=== PATIENT | female | born 1950 | race Hispanic/Latino ===

== ENCOUNTER 2018-08-24 17:56 | Inpatient (IN) | payer MEDICARE ==
--- NOTE | 2018-08-24 18:49 | Emergency Department Report ---
HPI - General Chief Complaint: Dyspnea/Respdistress Time Seen by Provider: 08/24/18 18:18 - HPI HPI: 68-year-old female presents to the emergency department via EMS with complaint of shortness of breath and generally feeling ill. Patient appears sleepy but is arousable but is currently a poor historian. She has a past history of COPD for which she is home oxygen dependent at 3 L via nasal cannula. She has a history of hypertension, CHF, paroxysmal A. fib and T-cell carcinoma that is in remission. The patient went to the painter and decorator apprentice today where she had a normal checkup. She was brought to her daughters so that they could drive back together to [place] but the patient was slumped to the side and complained of shortness of breath, feeling ill, and said that she needed to go to the emergency department. The patient's daughter called EMS. An EKG was done in route and EMS had some concern for ischemic changes so the patient was given a nitroglycerin. Patient's applications engineer is Dr. Castañeda and senior java engineer is a Dr. Clemente here in [place]. ED Past Medical Hx - Past Medical History Hx Hypertension: Yes Hx Congestive Heart Failure: Yes Hx COPD: Yes (c-pap and home O2 3L) Additional medical history: AFIB, T-CELL Carcinoma, port left chest - Surgical History Hx Cholecystectomy: Yes Hx Appendectomy: Yes Additional Surgical History: hysterectomy,right knee - Social History Smoking Status: Unknown if ever smoked Substance Use Type: None - Medications Home Medications: Home Medications Medication Instructions Recorded Confirmed Last Taken Type ALBUTEROL Inhaler (OR & NICU) 3 puff IH QID PRN 08/24/18 08/24/18 Unknown History [Proair] ALPRAZolam [Xanax TAB] 0.5 mg PO BID 08/24/18 08/24/18 Unknown History Allopurinol [Zyloprim] 300 mg PO QDAY 08/24/18 08/24/18 Unknown History Budesonide/Formoterol Fumarate 10.2 gm IH BID 08/24/18 08/24/18 Unknown History [Symbicort 160-4.5 Mcg Inhaler] Cholecalciferol Vit D3 [Vitamin D3 1,000 unit PO QDAY 08/24/18 08/24/18 Unknown History 1,000 UNIT TAB] Colchicine [Mitigare] 0.6 mg PO DAILY 08/24/18 08/24/18 Unknown History Furosemide [Lasix TAB] 40 mg PO QDAY 08/24/18 08/24/18 Unknown History Gabapentin [Neurontin] 300 mg PO BID 08/24/18 08/24/18 Unknown History Magnesium 500 mg PO DAILY 08/24/18 08/24/18 Unknown History Potassium 20 meq PO BID 08/24/18 08/24/18 Unknown History Pravastatin [Pravachol] 20 mg PO QHS 08/24/18 08/24/18 Unknown History Sertraline [Zoloft] 50 mg PO QDAY 08/24/18 08/24/18 Unknown History Tiotropium [Spiriva] 18 mcg IH QDAY 08/24/18 08/24/18 Unknown History Verapamil [Calan] 120 mg PO TID 08/24/18 08/24/18 Unknown History Warfarin [Coumadin] 5 mg PO QDAY 08/24/18 08/24/18 Unknown History buPROPion SR [Wellbutrin Sr] 150 mg PO BID 08/24/18 08/24/18 Unknown History glipiZIDE [Glipizide] 10 mg PO BID 08/24/18 08/24/18 Unknown History rOPINIRole [Requip] 1 mg PO QHS 08/24/18 08/24/18 Unknown History traZODone [Desyrel] 150 mg PO QHS 08/24/18 08/24/18 Unknown History ED Review of Systems ROS: Stated complaint: YUMIKO Other details as noted in HPI Comment: All other systems reviewed and negative Constitutional: weakness. denies: chills, fever Eyes: denies: eye pain, vision change ENT: denies: ear pain, throat pain Respiratory: shortness of breath. denies: wheezing Cardiovascular: denies: chest pain, edema Gastrointestinal: denies: abdominal pain, vomiting Genitourinary: denies: dysuria, frequency Musculoskeletal: denies: back pain, arthralgia Skin: denies: rash, lesions Neurological: denies: headache, numbness Physical Exam - Physical Exam Vital Signs: Vital Signs 08/24/18 18:10 Temperature 98.4 F Pulse Rate 80 Respiratory 20 Rate Blood Pressure 125/65 O2 Sat by Pulse 97 Oximetry Physical Exam: GENERAL: The patient is well-developed well-nourished. HEENT: Normocephalic. Atraumatic. Patient has moist mucous membranes. EYES: Extraocular motions are intact. Pupils are equal and reactive to light bilaterally. NECK: Supple. Trachea is midline. CHEST/LUNGS: Slightly coarse breath sounds. Tachypnea but no accessory muscle use. There is no respiratory distress noted. HEART/CARDIOVASCULAR: Regular. There is no tachycardia. There is no obvious murmur. ABDOMEN: Abdomen is soft, nontender. Patient has normal bowel sounds. There is no abdominal distention. SKIN: Skin is warm and dry. NEURO: The patient is very sleepy but is arousable. Once awake, she is oriented but may fall back asleep if not stimulated. Follows commands. MUSCULOSKELETAL: There is no tenderness or deformity. There is no evidence of acute injury. ED Course Vital Signs 08/24/18 18:10 Temperature 98.4 F Pulse Rate 80 Respiratory 20 Rate Blood Pressure 125/65 O2 Sat by Pulse 97 Oximetry - Reevaluation(s) Reevaluation #1: 08/24/18 21:36 The patient's daughter made a request for a lateral transfer to [facility] for continuity of care. The patient's senior java engineer, Dr. Pineda, is a [place] senior java engineer and does not come to our hospital. The applications engineer does come to this hospital. The PCP, Dr Delta Perrin, is located in [place] but apparently does not take his own admissions. I attempted to contact the primary care physician and was able to speak with one of his partners, Dr. Hinds. Dr. Hinds agrees that it is difficult to facilitate this type of lateral transfer at night and that the patient should be admitted to our facility. He suggests that if the patient or patient's family still wants a transfer done tomorrow during normal business hours, then Dr. Perrin should be contacted directly and the discussion can be had regarding a possible transfer, if still warranted. - ABG Interpretation Ph: [phone] PCO2: 51 PO2: 68 Bicarbonate: 31 Interpretation: respiratory acidosis, metabolic alkalosis ED Medical Decision Making - Lab Data Result diagrams: 08/24/18 18:43 08/24/18 18:43 - EKG Data -: EKG Interpreted by Me EKG shows normal: sinus rhythm, axis, intervals (prolonged QTc), QRS complexes (RBBB), ST-T waves Rate: normal - EKG Data When compared to previous EKG there are: previous EKG unavailable Interpretation: other (RBBB) - Radiology Data Radiology results: report reviewed, image reviewed interpreted by me: Chest x-ray shows cardiomegaly with pulmonary vascular congestion. No pneumonia or obvious layering pleural effusions. PROCEDURE: CT HEAD/BRAIN WO CON TECHNIQUE: Computerized tomography of the head was performed without contrast material. CT DOSE LENGTH PRODUCT: 1048.3 mGycm HISTORY: AMS COMPARISONS: None . FINDINGS: Skull and scalp: Normal . Paranasal sinuses: Sinuses are clear. There is partial opacification of bilateral mastoid air cells. . Ventricles and subarachnoid spaces: Normal . Cerebrum: There is mild degree of bilateral periventricular nonspecific white m atter hypodensity most likely representing chronic microangiopathy. An acute intra-axial or extra-axial hemorrhage or mass effect is not identified.. Cerebellum and brainstem: No evidence of hemorrhage, acute infarction or mass . Vasculature: Atherosclerotic calcification is noted involving internal carotid and vertebral arteries. . Other: None . ASPECTS: 10 IMPRESSION: No acute intracranial abnormality. Bilateral mastoiditis is suspected.. This document is electronically signed by Mellisa Aly MD., August 24 2018 09:59:47 PM ET Transcribed By: [facility] [place] Dictated By: MELLISA ALY Electronically Authenticated By: MELLISA ALY Signed Date/Time: 08/24/182200 - Medical Decision Making This patient presents to the emergency department with acute shortness of breath and general illness. She is very sleepy, almost lethargic, but is arousable and once awake she is oriented to person, place and time. A CT scan of the head was done that does not show any bleed, shift, mass, ischemia, or any other acute process. ABG shows some hypercapnia and hypoxemia. Patient has maintained her oxygen saturation with supplemental oxygen via nasal cannula. There is some tachypnea but no accessory muscle use or signs of respiratory distress. Chest x-ray does not show any obvious pneumonia but there is some cardiomegaly and pulmonary vascular congestion. She has a BNP of almost 4000. Patient was given breathing treatments, Lasix for diuresis. EKG shows a right bundle branch block but no ST elevation WA or dysrhythmia. The patient will be admitted to hospital for further evaluation and treatment was accepted for admission by the hospitalist, Dr. Coronel. - Differential Diagnosis COPD, CHF, pneumonia, WA, PE Critical Care Time: No Critical care attestation.: If time is entered above; I have spent that time in minutes in the direct care of this critically ill patient, excluding procedure time. ED Disposition Clinical Impression: COPD with acute exacerbation, Hypercapnia Hypertension Qualifiers: Hypertension type: essential hypertension Qualified Code(s): I10 - Essential (primary) hypertension Acute exacerbation of CHF (congestive heart failure) Qualifiers: Heart failure type: unspecified Qualified Code(s): I50.9 - Heart failure, unspecified Disposition: OP ADMIT IP TO THIS HOSP Is pt being admited?: Yes Condition: Serious Time of Disposition: 01:10
[2018-08-24 19:03] LABS: Basophils # (Auto) 0.1 K/mm3 (0.0-0.1); Basophils % (Auto) 1.2 % (0.0-1.8); Eosinophils # (Auto) 0.1 K/mm3 (0.0-0.4); Eosinophils % (Auto) 0.8 % (0.0-4.3); Hematocrit 43.4 % (30.3-42.9); Hemoglobin 14.4 gm/dl (10.1-14.3); Lymphocytes # (Auto) 2.5 K/mm3 (1.2-5.4); Mean Corpuscular HGB Conc 33 % (30-34); Mean Corpuscular Volume 96 fl (79-97); Monocytes # (Auto) 0.5 K/mm3 (0.0-0.8); Monocytes % (Auto) 4.2 % (0.0-7.3); Platelet Count 257 K/mm3 (140-440); Red Blood Count 4.52 M/mm3 (3.65-5.03); Red Cell Distribution Width 13.5 % (13.2-15.2)
[2018-08-24 19:13] LABS: INR 2.64 (0.87-1.13)
[2018-08-24 19:33] LABS: Alanine Aminotransferase 6 units/L (7-56); Albumin 3.6 g/dL (3.9-5); BUN/Creatinine Ratio 12; Blood Urea Nitrogen 7 mg/dL (7-17); Hemolysis Index 21
--- NOTE | 2018-08-24 19:34 | XRay Report ---
PROCEDURE: XR CHEST 1V AP TECHNIQUE: Chest radiograph , single frontal view. HISTORY: Dyspnea COMPARISONS: None . FINDINGS: Heart: Enlarged. Mediastinum/Vessels: Prominent bilateral pulmonary arteries are seen in each hilum. Lungs/Pleural space: Normal. Bony thorax: No acute osseous abnormality. Surgical clips in the left axilla noted. Life support devices: A small battery compartment overlying the heart is noted.. IMPRESSION: No acute cardiopulmonary abnormality. Mild cardiomegaly and prominent pulmonary arteries in each hilum This document is electronically signed by Mojgan Tena MD., August 24 2018 07:32:43 PM ET
[2018-08-24] MEDS ORDERED: LASIX IV ONE (19:35)
[2018-08-24] MEDS ORDERED: DUONEB *Not for PRN Use IH ONE (19:35)
--- NOTE | 2018-08-24 22:01 | Cat Scan Report ---
PROCEDURE: CT HEAD/BRAIN WO CON TECHNIQUE: Computerized tomography of the head was performed without contrast material. CT DOSE LENGTH PRODUCT: 1048.3 mGycm HISTORY: AMS COMPARISONS: None . FINDINGS: Skull and scalp: Normal . Paranasal sinuses: Sinuses are clear. There is partial opacification of bilateral mastoid air cells. . Ventricles and subarachnoid spaces: Normal . Cerebrum: There is mild degree of bilateral periventricular nonspecific white matter hypodensity most likely representing chronic microangiopathy. An acute intra-axial or extra-axial hemorrhage or mass effect is not identified.. Cerebellum and brainstem: No evidence of hemorrhage, acute infarction or mass . Vasculature: Atherosclerotic calcification is noted involving internal carotid and vertebral arterie s. . Other: None . ASPECTS: 10 IMPRESSION: No acute intracranial abnormality. Bilateral mastoiditis is suspected.. This document is electronically signed by Magdi Dodd MD., August 24 2018 09:59:47 PM ET
[2018-08-24] MEDS ORDERED: SODIUM CHLORIDE FLUSH SYRINGE 10 ML IV PRN (23:04)
[2018-08-24] MEDS ORDERED: ZOFRAN IV PRN (23:04)
--- NOTE | 2018-08-24 23:08 | History and Physical Report ---
History of Present Illness Date of examination: 08/24/18 History of present illness: 68-year-old woman with a history of hypertension, CHF, COPD, A. fib, cancer comes emergency room with complaints of shortness of breath, decreased exercise tolerance that started yesterday Review of systems Constitutional: no weight loss, chills, fever Ears, eyes, nose, mouth and throat: no nasal congestion, no nasal discharge, no sinus pressure, no vision change, no red eye. Neck: No neck pain or rigidity. Cardiovascular: no palpitations, chest pain Respiratory: no cough, +shortness of breath Gastrointestinal: no hematochezia, abdominal pain Genitourinary : no frequency , no hematuria Musculoskeletal: no joint swelling or muscle ache Integumentary: no rash, no pruritis Neurological: no parathesias, no focal weakness Endocrine: no cold or heat intolerance, no polyuria or polydipsia Hematologic/Lymphatic: no easy bruising, no easy bleeding, no gland swelling Allergic/Immunologic: no urticaria, no angioedema. PAST MEDICAL HISTORY:hypertension, CHF, COPD, A. fib, cancer PAST SURGICAL HISTORY: Hysterectomy, right knee, appendectomy, gallbladder SOCIAL HISTORY: Denies alcohol, drugs, tobacco FAMILY HISTORY: Hypertension Medications and Allergies Allergies Allergy/AdvReac Type Severity Reaction Status Date / Time No Known Allergies Allergy Verified 08/24/18 21:54 Home Medications Medication Instructions Recorded Confirmed Last Taken Type ALBUTEROL Inhaler (OR & NICU) 3 puff IH QID PRN 08/24/18 08/24/18 Unknown History [Proair] ALPRAZolam [Xanax TAB] 0.5 mg PO BID 08/24/18 08/24/18 Unknown History Allopurinol [Zyloprim] 300 mg PO QDAY 08/24/18 08/24/18 Unknown History Budesonide/Formoterol Fumarate 10.2 gm IH BID 08/24/18 08/24/18 Unknown History [Symbicort 160-4.5 Mcg Inhaler] Cholecalciferol Vit D3 [Vitamin D3 1,000 unit PO QDAY 08/24/18 08/24/18 Unknown History 1,000 UNIT TAB] Colchicine [Mitigare] 0.6 mg PO DAILY 08/24/18 08/24/18 Unknown History Furosemide [Lasix TAB] 40 mg PO QDAY 08/24/18 08/24/18 Unknown History Gabapentin [Neurontin] 300 mg PO BID 08/24/18 08/24/18 Unknown History Magnesium 500 mg PO DAILY 08/24/18 08/24/18 Unknown History Potassium 20 meq PO BID 08/24/18 08/24/18 Unknown History Pravastatin [Pravachol] 20 mg PO QHS 08/24/18 08/24/18 Unknown History Sertraline [Zoloft] 50 mg PO QDAY 08/24/18 08/24/18 Unknown History Tiotropium [Spiriva] 18 mcg IH QDAY 08/24/18 08/24/18 Unknown History Verapamil [Calan] 120 mg PO TID 08/24/18 08/24/18 Unknown History Warfarin [Coumadin] 5 mg PO QDAY 08/24/18 08/24/18 Unknown History buPROPion SR [Wellbutrin Sr] 150 mg PO BID 08/24/18 08/24/18 Unknown History glipiZIDE [Glipizide] 10 mg PO BID 08/24/18 08/24/18 Unknown History rOPINIRole [Requip] 1 mg PO QHS 08/24/18 08/24/18 Unknown History traZODone [Desyrel] 150 mg PO QHS 08/24/18 08/24/18 Unknown History Exam - Physical Exam Narrative exam: General Apperance: The patient lying in bed, breathing comfortable HEENT: Normocephalic, atraumatic. Pupils equally round and reactive to light, EOMI, no sclericterus or JVD or thyromegaly or nodule. , no carotid bruit, mucous membranes moist, no exudate or erythema Heart: S1-S2, regular is rhythm Lungs: Wheezing bilaterally, breathing comfortable Abdomen: Positive bowel sounds, soft, nontender, nondistended, no organomegaly Extremities: No edema cyanosis clubbing Skin: no rash, nodule, warm and dry Neuro: cranial nerves 2-12 intact, speech is fluent, motor/sensory intact - Constitutional Vitals: Temp Pulse Resp BP Pulse Ox 98.4 F 82 16 163/83 98 08/24/18 18:10 08/24/18 20:00 08/24/18 20:00 08/24/18 18:46 08/24/18 18:46 Results - Labs CBC & Chem 7: 08/24/18 18:43 08/24/18 18:43 Labs: Abnormal lab results 08/24/18 08/24/18 08/24/18 Range/Units 18:43 18:43 18:43 WBC 11.2 H (4.5-11.0) K/mm3 Hgb 14.4 H (10.1-14.3) gm/dl Hct 43.4 H (30.3-42.9) % Seg Neutrophils % 71.8 H (40.0-70.0) % Seg Neutrophils # 8.0 H (1.8-7.7) K/mm3 PT 30.0 H (12.2-14.9) Sec. INR 2.64 H (0.87-1.13) POC ABG pCO2 (35-45) POC ABG pO2 (80-105) Sodium 136 L (137-145) mmol/L Chloride 92.7 L (98-107) mmol/L Carbon Dioxide 33 H (22-30) mmol/L Creatinine 0.6 L (0.7-1.2) mg/dL Glucose 235 H (65-100) mg/dL ALT 6 L (7-56) units/L NT-Pro-B Natriuret Pep (0-900) pg/mL Albumin 3.6 L (3.9-5) g/dL 08/24/18 08/24/18 Range/Units 18:43 19:29 WBC (4.5-11.0) K/mm3 Hgb (10.1-14.3) gm/dl Hct (30.3-42.9) % Seg Neutrophils % (40.0-70.0) % Seg Neutrophils # (1.8-7.7) K/mm3 PT (12.2-14.9) Sec. INR (0.87-1.13) POC ABG pCO2 51.6 H (35-45) POC ABG pO2 68 L (80-105) Sodium (137-145) mmol/L Chloride (98-107) mmol/L Carbon Dioxide (22-30) mmol/L Creatinine (0.7-1.2) mg/dL Glucose (65-100) mg/dL ALT (7-56) units/L NT-Pro-B Natriuret Pep 3980 H (0-900) pg/mL Albumin (3.9-5) g/dL - Imaging and Cardiology EKG: image reviewed Chest x-ray: report reviewed CT Scan - head: report reviewed Assessment and Plan Assessment COPD exacerbation hypertension CHF, stable A. fib Plan Admit to medicine Start IV steroids, nebulizer treatments Continue Procrit outpatient medications DVT prophylaxis, on Coumadin
[2018-08-25] MEDS: DUONEB *Not for PRN Use IH SCH ×5 (03:46→21:34)
[2018-08-25] MEDS: SOLU-Medrol IV SCH ×3 (05:21→15:14)
[2018-08-25 06:27] LABS: Basophils # (Auto) 0.1 K/mm3 (0.0-0.1); Basophils % (Auto) 0.5 % (0.0-1.8); Eosinophils % (Auto) 0.3 % (0.0-4.3); Hematocrit 43.2 % (30.3-42.9); Hemoglobin 14.6 gm/dl (10.1-14.3); Lymphocytes # (Auto) 3.6 K/mm3 (1.2-5.4); Lymphocytes % (Auto) 30.1 % (13.4-35.0); Mean Corpuscular HGB Conc 34 % (30-34); Mean Corpuscular Volume 96 fl (79-97); Monocytes # (Auto) 0.7 K/mm3 (0.0-0.8); Monocytes % (Auto) 5.7 % (0.0-7.3); Platelet Count 255 K/mm3 (140-440); Red Blood Count 4.52 M/mm3 (3.65-5.03); Red Cell Distribution Width 13.6 % (13.2-15.2)
[2018-08-25 06:46] LABS: BUN/Creatinine Ratio 16; Blood Urea Nitrogen 8 mg/dL (7-17); Calcium 8.7 mg/dL (8.4-10.2); Hemolysis Index 11
[2018-08-25] MEDS ORDERED: PULMICORT IH SCH (08:00)
[2018-08-25] MEDS: BROVANA NEBU IH SCH ×2 (08:58→21:32)
[2018-08-25] MEDS: HumaLOG SUB-Q SCH ×5 (09:30→22:21)
[2018-08-25] MEDS: COLCHICINE PO SCH (09:51)
[2018-08-25] MEDS: WELLBUTRIN SR PO SCH ×2 (09:52→22:06)
[2018-08-25] MEDS: GLUCOTROL PO SCH ×2 (09:52→17:38)
[2018-08-25] MEDS: CALAN PO SCH ×3 (09:52→22:04)
[2018-08-25] MEDS: XANAX PO SCH ×2 (09:53→22:06)
[2018-08-25] MEDS: ZOLOFT PO SCH (09:53)
[2018-08-25] MEDS: SODIUM CHLORIDE FLUSH SYRINGE 10 ML IV SCH ×2 (09:54→22:09)
[2018-08-25] MEDS: ZYLOPRIM PO SCH (09:54)
[2018-08-25] MEDS: MAG-OX PO SCH (09:54)
[2018-08-25] MEDS: NEURONTIN PO SCH ×2 (09:54→22:07)
[2018-08-25] MEDS: VITAMIN D3 PO SCH (09:54)
[2018-08-25] MEDS ORDERED: SPIRIVA IH SCH (10:00)
[2018-08-25] MEDS ORDERED: NON-FORMULARY (Budesonide/Formoterol Fumarate [Symbicort 160-4.5 Mcg Inhaler] 10.2 GM) IH SCH (10:00)
[2018-08-25] MEDS ORDERED: LOVENOX SUB-Q SCH (10:00)
[2018-08-25] MEDS ORDERED: LASIX PO SCH (10:00)
--- NOTE | 2018-08-25 11:41 | Consultation ---
History of Present Illness Consult date: 08/25/18 Requesting physician: ALPHONSE ALMANZAR Consult reason: congestive heart failure, other (abnormal ECG) History of present illness: The pt is a 68-year-old female with a past medical history of HTN, DM, HLP, paroxysmal atrial fibrillation, anticoagulated with coumadin, HF, COPD, chronic respiratory failure requiring home 3L O2 (followed by Dr. Castañeda), T-cell carcinoma that is in remission. She is reportedly regularly followed by Dr. Clemente [facility]. She presented to the emergency department via EMS with complaint of shortness of breath, lethargy and generally feeling ill. Pt is a rather poor historian and and the HPI is obtained per her daughter at bedside. The patient went to the pharmacovigilance safety expert yesterday where she had a normal checkup. She was brought to her daughters so that they could drive back together to [place] but the patient was slumped to the side and complained of shortness of breath, feeling ill, and said that she needed to go to the emergency department. Records from [place] obtained: Echo done 01/2018 was TDS, showed EF 55%. Past History Past Medical History: atrial fib, COPD, diabetes, heart failure, hypertension, hyperlipidemia Medications and Allergies Allergies Allergy/AdvReac Type Severity Reaction Status Date / Time No Known Allergies Allergy Verified 08/24/18 21:54 Home Medications Medication Instructions Recorded Confirmed Last Taken Type ALBUTEROL Inhaler (OR & NICU) 3 puff IH QID PRN 08/24/18 08/24/18 Unknown History [Proair] ALPRAZolam [Xanax TAB] 0.5 mg PO BID 08/24/18 08/24/18 Unknown History Allopurinol [Zyloprim] 300 mg PO QDAY 08/24/18 08/24/18 Unknown History Budesonide/Formoterol Fumarate 10.2 gm IH BID 08/24/18 08/24/18 Unknown History [Symbicort 160-4.5 Mcg Inhaler] Cholecalciferol Vit D3 [Vitamin D3 1,000 unit PO QDAY 08/24/18 08/24/18 Unknown History 1,000 UNIT TAB] Colchicine [Mitigare] 0.6 mg PO DAILY 08/24/18 08/24/18 Unknown History Furosemide [Lasix TAB] 40 mg PO QDAY 08/24/18 08/24/18 Unknown History Gabapentin [Neurontin] 300 mg PO BID 08/24/18 08/24/18 Unknown History Magnesium 500 mg PO DAILY 08/24/18 08/24/18 Unknown History Potassium 20 meq PO BID 08/24/18 08/24/18 Unknown History Pravastatin [Pravachol] 20 mg PO QHS 08/24/18 08/24/18 Unknown History Sertraline [Zoloft] 50 mg PO QDAY 08/24/18 08/24/18 Unknown History Tiotropium [Spiriva] 18 mcg IH QDAY 08/24/18 08/24/18 Unknown History Verapamil [Calan] 120 mg PO TID 08/24/18 08/24/18 Unknown History Warfarin [Coumadin] 5 mg PO QDAY 08/24/18 08/24/18 Unknown History buPROPion SR [Wellbutrin Sr] 150 mg PO BID 08/24/18 08/24/18 Unknown History glipiZIDE [Glipizide] 10 mg PO BID 08/24/18 08/24/18 Unknown History rOPINIRole [Requip] 1 mg PO QHS 08/24/18 08/24/18 Unknown History traZODone [Desyrel] 150 mg PO QHS 08/24/18 08/24/18 Unknown History Active Meds: Active Medications Acetaminophen (Tylenol) 650 mg PO Q4H PRN PRN Reason: Pain MILD(1-3)/Fever >100.5/JOYA Albuterol/Ipratropium (Duoneb *Not For Prn Use*) 1 ampul IH Q6HRT [facility] Last Admin: 08/25/18 08:54 Dose: 1 ampul Documented by: Allopurinol (Zyloprim) 300 mg PO QDAY [facility] Last Admin: 08/25/18 09:54 Dose: 300 mg Documented by: Alprazolam (Xanax) 0.5 mg PO BID [facility] Last Admin: 08/25/18 09:53 Dose: 0.5 mg Documented by: Arformoterol Tartrate (Brovana Nebu) 15 mcg IH Q12HRT [facility] Last Admin: 08/25/18 08:58 Dose: Not Given Documented by: Budesonide (Pulmicort) 1 mg IH Q12HRT [facility] Last Admin: 08/25/18 08:54 Dose: 1 mg Documented by: Bupropion HCl (Wellbutrin Sr) 150 mg PO BID [facility] Last Admin: 08/25/18 09:52 Dose: 150 mg Documented by: Cholecalciferol (Vitamin D3) 1,000 unit PO QDAY [facility] Last Admin: 08/25/18 09:54 Dose: 1,000 unit Documented by: Colchicine (Colchicine) 0.6 mg PO DAILY [facility] Last Admin: 08/25/18 09:51 Dose: 0.6 mg Documented by: Furosemide (Lasix) 40 mg PO QDAY [facility] Last Admin: 08/25/18 09:54 Dose: 40 mg Documented by: Gabapentin (Neurontin) 300 mg PO BID [facility] Last Admin: 08/25/18 09:54 Dose: 300 mg Documented by: Glipizide (Glucotrol) 10 mg PO BIDDIAB [facility] Last Admin: 08/25/18 09:52 Dose: 10 mg Documented by: Insulin Human Lispro (Humalog) 0 unit SUB-Q [facility]; Protocol Last Admin: 08/25/18 09:30 Dose: 6 unit Documented by: Magnesium Oxide (Mag-Ox) 400 mg PO DAILY [facility] Last Admin: 08/25/18 09:54 Dose: 400 mg Documented by: Methylprednisolone Sodium Succinate (Solu-Medrol) 125 mg IV Q6HR [facility] Last Admin: 08/25/18 05:21 Dose: 125 mg Documented by: Ondansetron HCl (Zofran) 4 mg IV Q8H PRN PRN Reason: Nausea And Vomiting Pravastatin Sodium (Pravachol) 20 mg PO QHS [facility] Ropinirole HCl (Requip) 1 mg PO QHS [facility] Sertraline HCl (Zoloft) 50 mg PO QDAY [facility] Last Admin: 08/25/18 09:53 Dose: 50 mg Documented by: Sodium Chloride (Sodium Chloride Flush Syringe 10 Ml) 10 ml IV BID [facility] Last Admin: 08/25/18 09:54 Dose: 10 ml Documented by: Sodium Chloride (Sodium Chloride Flush Syringe 10 Ml) 10 ml IV PRN PRN PRN Reason: LINE FLUSH Trazodone HCl (Desyrel) 150 mg PO QHS [facility] Verapamil HCl (Calan) 120 mg PO TID [facility] Last Admin: 08/25/18 09:52 Dose: 120 mg Documented by: Review of Systems Constitutional: lethargy, no fever, no chills, no sweats Ears, nose, mouth and throat: no ear pain, no nose pain, no sinus pressure, no sinus pain Cardiovascular: shortness of breath, dyspnea on exertion, decreased exercise tolerance, no chest pain, no orthopnea, no palpitations, no rapid/irregular heart beat, no edema, no syncope, no lightheadedness, no leg edema Respiratory: cough, shortness of breath, dyspnea on exertion, wheezing, no congestion, no pain on inspiration Gastrointestinal: no abdominal pain, no nausea, no vomiting, no diarrhea, no constipation, no change in bowel habits Genitourinary Female: no pelvic pain, no flank pain, no dysuria, no urinary frequency, no urgency Musculoskeletal: no neck stiffness, no neck pain, no shooting arm pain, no arm numbness/tingling, no low back pain, no shooting leg pain Integumentary: no rash, no pruritis, no redness, no sores, no wounds Neurological: other (lethargy), no head injury, no paralysis, no weakness, no parathesias, no numbness, no tingling, no seizures, no syncope Psychiatric: no anxiety Endocrine: no cold intolerance, no heat intolerance Hematologic/Lymphatic: no easy bruising, no easy bleeding Allergic/Immunologic: no urticaria, no wheezing Physical Examination Vital Signs Temp Pulse Resp BP Pulse Ox 98.4 F 80 20 125/65 97 08/24/18 18:10 08/24/18 18:10 08/24/18 18:10 08/24/18 18:10 08/24/18 18:10 General appearance: other (lethargic) HEENT: Positive: PERRL, Normocephaly, Mucus Membranes Moist Neck: Positive: neck supple, trachea midline Cardiac: Positive: Reg Rate and Rhythm, S1/S2 Lungs: Positive: Decreased Breath Sounds Neuro: Positive: Other (lethargic) Skin: Negative: Rash Extremities: Absent: edema Results 08/25/18 05:56 08/25/18 05:56 Cardiac Enzymes 08/24/18 Range/Units 18:43 AST 10 (5-40) units/L Coagulation 08/24/18 Range/Units 18:43 PT 30.0 H (12.2-14.9) Sec. INR 2.64 H (0.87-1.13) APTT 36.0 (24.2-36.6) Sec. CBC 08/24/18 08/25/18 Range/Units 18:43 05:56 WBC 11.2 H 12.0 H (4.5-11.0) K/mm3 RBC 4.52 4.52 (3.65-5.03) M/mm3 Hgb 14.4 H 14.6 H (10.1-14.3) gm/dl Hct 43.4 H 43.2 H (30.3-42.9) % Plt Count 257 255 (140-440) K/mm3 Lymph # 2.5 3.6 (1.2-5.4) K/mm3 [place] # 0.5 0.7 (0.0-0.8) K/mm3 Eos # 0.1 0.0 (0.0-0.4) K/mm3 Baso # 0.1 0.1 (0.0-0.1) K/mm3 Comprehensive Metabolic Panel 08/24/18 08/25/18 Range/Units 18:43 05:56 Sodium 136 L 137 (137-145) mmol/L Potassium 4.1 3.6 (3.6-5.0) mmol/L Chloride 92.7 L 92.1 L (98-107) mmol/L Carbon Dioxide 33 H 33 H (22-30) mmol/L BUN 7 8 (7-17) mg/dL Creatinine 0.6 L 0.5 L (0.7-1.2) mg/dL Glucose 235 H 235 H (65-100) mg/dL Calcium 9.0 8.7 (8.4-10.2) mg/dL AST 10 (5-40) units/L ALT 6 L (7-56) units/L Alkaline Phosphatase 104 (35-129) units/L Total Protein 7.2 (6.3-8.2) g/dL Albumin 3.6 L (3.9-5) g/dL - Imaging and Cardiology Echo: report reviewed ( 01/2018 was TDS, showed EF 55%. ) EKG: report reviewed, image reviewed EKG interpretations - Telemetry EKG Rhythm: Sinus Rhythm - EKG Sinus rhythms and dysrhythmias: sinus rhythm AV and intraventricular conduction: right bundle branch block Assessment and Plan Acute heart failure with preserved EF Echo from [place] 01/2018 was TDS, showed EF 55%. Pt laying flat comfortably without any SOB. Cont IV lasix daily. COPD exacerbation / Acute on chronic respiratory failure Pulmonary consultation pending. Lethargy / ? Encephalopathy ? 2/[address] with NAF, bilateral mastoiditis suspected. Paroxysmal atrial fibrillation Currently in SR. Home verapamil resumed. Cont coumadin with tx INR 2-3. Echo from [place] 01/2018 was TDS, showed EF 55%. RBBB Appears chronic. ECG from [place] 08/09/2018 and 07/2015 showed NSR with RBBB. Leukocytosis Mild. Pt afebrile. Pt receiving IV steroids. HTN HLP DM / peripheral neuropathy The patient has been seen in conjunction with Dr. Khan who agrees with the assessment and plan of care.
--- NOTE | 2018-08-25 14:14 | Progress Note ---
Assessment and Plan Assessment and plan: Confusion - CT head was normal - CO2 was 51, likely due to CO2 narcosis - It's getting better Chronic diastolic CHF exacerbation - If was 55%, chest x-ray showed chronic congestion - Patient is on IV Lasix daily -Cardiology consulted and agreed with the management plan COPD - Patient is on appropriate COPD medications - Patient asked to be seen by her credit or loans officer and consult placed Right bundle-branch block - Chronic DVT prophylaxis Disposition - Continue inpatient care History Interval history: Patient was seen and evaluated this morning, patient's confusion was getting better this morning. Patient was alert and oriented. I have discussed the management plan with the patient and her daughter. Hospitalist Physical - Physical exam Narrative exam: Not in cardiopulmonary distress. The patient is obese. Vital signs as documented. Head exam is unremarkable. No scleral icterus . Neck is without jugular venous distension, thyromegaly, or carotid bruits. Lungs are clear to auscultation. Cardiac exam reveals regular rate and Rhythm. Abdominal exam reveals normal bowel sounds, no masses, no organomegaly and no aortic enlargement. Extremities are nonedematous and both femoral and pedal pulses are normal. DIRECTOR OF EMPLOYEE DEVELOPMENT: Alert and oriented 3. No focal weakness. - Constitutional Vitals: Temp Pulse Resp BP Pulse Ox 97.8 F 79 18 167/76 92 08/25/18 13:00 08/25/18 13:33 08/25/18 13:33 08/25/18 13:00 08/25/18 13:00 General appearance: Present: other (lethargic) Results - Labs CBC & Chem 7: 08/25/18 05:56 08/25/18 05:56 Labs: Laboratory Last Values WBC 12.0 K/mm3 (4.5-11.0) H 08/25/18 05:56 RBC 4.52 M/mm3 (3.65-5.03) 08/25/18 05:56 Hgb 14.6 gm/dl (10.1-14.3) H 08/25/18 05:56 Hct 43.2 % (30.3-42.9) H 08/25/18 05:56 MCV 96 fl (79-97) 08/25/18 05:56 MCH 32 pg (28-32) 08/25/18 05:56 MCHC 34 % (30-34) 08/25/18 05:56 RDW 13.6 % (13.2-15.2) 08/25/18 05:56 Plt Count 255 K/mm3 (140-440) 08/25/18 05:56 Lymph % (Auto) 30.1 % (13.4-35.0) 08/25/18 05:56 Coal % (Auto) 5.7 % (0.0-7.3) 08/25/18 05:56 Eos % (Auto) 0.3 % (0.0-4.3) 08/25/18 05:56 Baso % (Auto) 0.5 % (0.0-1.8) 08/25/18 05:56 Lymph # 3.6 K/mm3 (1.2-5.4) 08/25/18 05:56 Coal # 0.7 K/mm3 (0.0-0.8) 08/25/18 05:56 Eos # 0.0 K/mm3 (0.0-0.4) 08/25/18 05:56 Baso # 0.1 K/mm3 (0.0-0.1) 08/25/18 05:56 Seg Neutrophils % 63.4 % (40.0-70.0) 08/25/18 05:56 Seg Neutrophils # 7.6 K/mm3 (1.8-7.7) 08/25/18 05:56 PT 30.0 Sec. (12.2-14.9) H 08/24/18 18:43 INR 2.64 (0.87-1.13) H 08/24/18 18:43 APTT 36.0 Sec. (24.2-36.6) 08/24/18 18:43 POC ABG pH 7.390 (7.35-7.45) 08/24/18 19:29 POC ABG pCO2 51.6 (35-45) H 08/24/18 19:29 POC ABG pO2 68 (80-105) L 08/24/18 19:29 POC ABG HCO3 31.2 (22-26 mml/L) 08/24/18 19:29 POC ABG Total CO2 33 (23-27mmol/L) 08/24/18 19:29 POC ABG O2 Sat 93 08/24/18 19:29 POC ABG Base Excess 6 ((-2) - (+3)mmol/L) 08/24/18 19:29 FiO2 32 % 08/24/18 19:29 Sodium 137 mmol/L (137-145) 08/25/18 05:56 Potassium 3.6 mmol/L (3.6-5.0) 08/25/18 05:56 Chloride 92.1 mmol/L (98-107) L 08/25/18 05:56 Carbon Dioxide 33 mmol/L (22-30) H 08/25/18 05:56 Anion Gap 16 mmol/L 08/25/18 05:56 BUN 8 mg/dL (7-17) 08/25/18 05:56 Creatinine 0.5 mg/dL (0.7-1.2) L 08/25/18 05:56 Estimated GFR > 60 ml/min 08/25/18 05:56 BUN/Creatinine Ratio 16 % 08/25/18 05:56 Glucose 235 mg/dL (65-100) H 08/25/18 05:56 POC Glucose 299 (70-105) H 08/25/18 11:52 Calcium 8.7 mg/dL (8.4-10.2) 08/25/18 05:56 Total Bilirubin 0.30 mg/dL (0.1-1.2) 08/24/18 18:43 AST 10 units/L (5-40) 08/24/18 18:43 ALT 6 units/L (7-56) L 08/24/18 18:43 Alkaline Phosphatase 104 units/L (35-129) 08/24/18 18:43 Ammonia 31.0 umol/L (25-60) 08/24/18 21:00 Troponin T < 0.010 ng/mL (0.00-0.029) 08/25/18 00:37 NT-Pro-B Natriuret Pep 3980 pg/mL (0-900) H 08/24/18 18:43 Total Protein 7.2 g/dL (6.3-8.2) 08/24/18 18:43 Albumin 3.6 g/dL (3.9-5) L 08/24/18 18:43 Albumin/Globulin Ratio 1.0 % 08/24/18 18:43 Active Medications - Current Medications Current Medications: Generic Name Dose Route Start Last Admin Trade Name Freq PRN Reason Stop Dose Admin Acetaminophen 650 mg 08/24/18 23:04 Tylenol PO Q4H PRN Pain MILD(1-3)/Fever >100.5/JOYA Albuterol/Ipratropium 1 ampul 08/25/18 02:00 08/25/18 13:23 Duoneb *Not For Prn Use* IH 1 ampul Q6HRT [facility] Administration Allopurinol 300 mg 08/25/18 10:00 08/25/18 09:54 Zyloprim PO 300 mg QDAY [facility] Administration Alprazolam 0.5 mg 08/25/18 10:00 08/25/18 09:53 Xanax PO 0.5 mg BID [facility] Administration Arformoterol Tartrate 15 mcg 08/25/18 08:00 08/25/18 08:58 Brovana Nebu IH Not Given Q12HRT [facility] Budesonide 1 mg 08/25/18 08:00 08/25/18 08:54 Pulmicort IH 1 mg Q12HRT [facility] Administration Bupropion HCl 150 mg 08/25/18 10:00 08/25/18 09:52 Wellbutrin Sr PO 150 mg BID [facility] Administration Cholecalciferol 1,000 unit 08/25/18 10:00 08/25/18 09:54 Vitamin D3 PO 1,000 unit QDAY [facility] Administration Colchicine 0.6 mg 08/25/18 10:00 08/25/18 09:51 Colchicine PO 0.6 mg DAILY [facility] Administration Furosemide 40 mg 08/26/18 10:00 Lasix IV QDAY [facility] Gabapentin 300 mg 08/25/18 10:00 08/25/18 09:54 Neurontin PO 300 mg BID [facility] Administration Glipizide 10 mg 08/25/18 08:00 08/25/18 09:52 Glucotrol PO 10 mg BIDDIAB [facility] Administration Insulin Human Lispro 0 unit 08/25/18 09:30 08/25/18 09:30 Humalog SUB-Q 6 unit ACHS [facility] Administration Protocol Magnesium Oxide 400 mg 08/25/18 10:00 08/25/18 09:54 Mag-Ox PO 400 mg DAILY [facility] Administration Methylprednisolone Sodium Succinate 125 mg 08/25/18 06:00 08/25/18 05:21 Solu-Medrol IV 125 mg Q6HR [facility] Administration Ondansetron HCl 4 mg 08/24/18 23:04 Zofran IV Q8H PRN Nausea And Vomiting Pravastatin Sodium 20 mg 08/25/18 22:00 Pravachol PO QHS [facility] Ropinirole HCl 1 mg 08/25/18 22:00 Requip PO QHS [facility] Sertraline HCl 50 mg 08/25/18 10:00 08/25/18 09:53 Zoloft PO 50 mg QDAY [facility] Administration Sodium Chloride 10 ml 08/25/18 10:00 08/25/18 09:54 Sodium Chloride Flush Syringe 10 Ml IV 10 ml BID [facility] Administration Sodium Chloride 10 ml 08/24/18 23:04 Sodium Chloride Flush Syringe 10 Ml IV PRN PRN LINE FLUSH Trazodone HCl 150 mg 08/25/18 22:00 Desyrel PO QHS [facility] Verapamil HCl 120 mg 08/25/18 08:00 08/25/18 09:52 Calan PO 120 mg TID [facility] Administration
--- NOTE | 2018-08-25 16:16 | Consultation ---
History of Present Illness Consult date: 08/25/18 Requesting physician: ALPHONSE ALMANZAR Reason for consult: COPD, hypoxemia History of present illness: 68 y/o morbidly obese female with known COPD and chronic respiratory failure (3liters NC at home) admitted with confusion and shortness of breath. CT head was negative. Per patient has been gradually having shortness of breath that has worsened over time. She also had pressure like chest pain as well. No cough, no fever. No sick contacts. No changes in her medications. Is followed by [facility]. Remainder of the review is negative. Just saw Dr. Hsu last week. Past History Past Medical History: atrial fib, COPD, diabetes, heart failure, hypertension, hyperlipidemia Medications and Allergies Allergies Allergy/AdvReac Type Severity Reaction Status Date / Time No Known Allergies Allergy Verified 08/24/18 21:54 Home Medications Medication Instructions Recorded Confirmed Last Taken Type ALBUTEROL Inhaler (OR & NICU) 3 puff IH QID PRN 08/24/18 08/24/18 Unknown H istory [Proair] ALPRAZolam [Xanax TAB] 0.5 mg PO BID 08/24/18 08/24/18 Unknown History Allopurinol [Zyloprim] 300 mg PO QDAY 08/24/18 08/24/18 Unknown History Budesonide/Formoterol Fumarate 10.2 gm IH BID 08/24/18 08/24/18 Unknown History [Symbicort 160-4.5 Mcg Inhaler] Cholecalciferol Vit D3 [Vitamin D3 1,000 unit PO QDAY 08/24/18 08/24/18 Unknown History 1,000 UNIT TAB] Colchicine [Mitigare] 0.6 mg PO DAILY 08/24/18 08/24/18 Unknown History Furosemide [Lasix TAB] 40 mg PO QDAY 08/24/18 08/24/18 Unknown History Gabapentin [Neurontin] 300 mg PO BID 08/24/18 08/24/18 Unknown History Magnesium 500 mg PO DAILY 08/24/18 08/24/18 Unknown History Potassium 20 meq PO BID 08/24/18 08/24/18 Unknown History Pravastatin [Pravachol] 20 mg PO QHS 08/24/18 08/24/18 Unknown History Sertraline [Zoloft] 50 mg PO QDAY 08/24/18 08/24/18 Unknown History Tiotropium [Spiriva] 18 mcg IH QDAY 08/24/18 08/24/18 Unknown History Verapamil [Calan] 120 mg PO TID 08/24/18 08/24/18 Unknown History Warfarin [Coumadin] 5 mg PO QDAY 08/24/18 08/24/18 Unknown History buPROPion SR [Wellbutrin Sr] 150 mg PO BID 08/24/18 08/24/18 Unknown History glipiZIDE [Glipizide] 10 mg PO BID 08/24/18 08/24/18 Unknown History rOPINIRole [Requip] 1 mg PO QHS 08/24/18 08/24/18 Unknown History traZODone [Desyrel] 150 mg PO QHS 08/24/18 08/24/18 Unknown History Active Meds: Active Medications Acetaminophen (Tylenol) 650 mg PO Q4H PRN PRN Reason: Pain MILD(1-3)/Fever >100.5/JOYA Albuterol/Ipratropium (Duoneb *Not For Prn Use*) 1 ampul IH Q6HRT [facility] Last Admin: 08/25/18 13:23 Dose: 1 ampul Documented by: Allopurinol (Zyloprim) 300 mg PO QDAY [facility] Last Admin: 08/25/18 09:54 Dose: 300 mg Documented by: Alprazolam (Xanax) 0.5 mg PO BID [facility] Last Admin: 08/25/18 09:53 Dose: 0.5 mg Documented by: Arformoterol Tartrate (Brovana Nebu) 15 mcg IH Q12HRT [facility] Last Admin: 08/25/18 08:58 Dose: Not Given Documented by: Budesonide (Pulmicort) 1 mg IH Q12HRT [facility] Last Admin: 08/25/18 08:54 Dose: 1 mg Documented by: Bupropion HCl (Wellbutrin Sr) 150 mg PO BID [facility] Last Admin: 08/25/18 09:52 Dose: 150 mg Documented by: Cholecalciferol (Vitamin D3) 1,000 unit PO QDAY [facility] Last Admin: 08/25/18 09:54 Dose: 1,000 unit Documented by: Colchicine (Colchicine) 0.6 mg PO DAILY [facility] Last Admin: 08/25/18 09:51 Dose: 0.6 mg Documented by: Furosemide (Lasix) 40 mg IV QDAY [facility] Gabapentin (Neurontin) 300 mg PO BID [facility] Last Admin: 08/25/18 09:54 Dose: 300 mg Documented by: Glipizide (Glucotrol) 10 mg PO BIDDIAB [facility] Last Admin: 08/25/18 09:52 Dose: 10 mg Documented by: Insulin Human Lispro (Humalog) 0 unit SUB-Q ACHS [facility]; Protocol Last Admin: 08/25/18 12:00 Dose: 6 unit Documented by: Magnesium Oxide (Mag-Ox) 400 mg PO DAILY [facility] Last Admin: 08/25/18 09:54 Dose: 400 mg Documented by: Methylprednisolone Sodium Succinate (Solu-Medrol) 125 mg IV Q6HR [facility] Last Admin: 08/25/18 15:14 Dose: Not Given Documented by: Ondansetron HCl (Zofran) 4 mg IV Q8H PRN PRN Reason: Nausea And Vomiting Pravastatin Sodium (Pravachol) 20 mg PO QHS [facility] Ropinirole HCl (Requip) 1 mg PO QHS [facility] Sertraline HCl (Zoloft) 50 mg PO QDAY [facility] Last Admin: 08/25/18 09:53 Dose: 50 mg Documented by: Sodium Chloride (Sodium Chloride Flush Syringe 10 Ml) 10 ml IV BID [facility] Last Admin: 08/25/18 09:54 Dose: 10 ml Documented by: Sodium Chloride (Sodium Chloride Flush Syringe 10 Ml) 10 ml IV PRN PRN PRN Reason: LINE FLUSH Trazodone HCl (Desyrel) 150 mg PO QHS [facility] Verapamil HCl (Calan) 120 mg PO TID [facility] Last Admin: 08/25/18 14:43 Dose: 120 mg Documented by: Review of Systems All systems: negative Constitutional: other (left sided rib pain) Physical Examination Vital signs: Vital Signs Temp Pulse Resp BP Pulse Ox 98.4 F 80 20 125/65 97 08/24/18 18:10 08/24/18 18:10 08/24/18 18:10 08/24/18 18:10 08/24/18 18:10 General appearance: no acute distress, alert, appears uncomfortable, other (sleepy) Eyes: non-icteric ENT: oropharynx moist Neck: supple, other (large in circumference) Effort: normal Ascultation: Bilateral: diminished breath sounds, rales (bibasilar) Percussion: Bilateral: not dull Tactile fremitus: Bilateral: normal Cardiovascular: regular rate and rhythm Gastrointestinal: normoactive bowel sounds, soft, non-tender Extremities: no edema Results - Laboratory Findings CBC and BMP: 08/25/18 05:56 08/25/18 05:56 ABG POC ABG pH 7.390 (7.35-7.45) 08/24/18 19:29 POC ABG pCO2 51.6 (35-45) H 08/24/18 19:29 POC ABG pO2 68 (80-105) L 08/24/18 19:29 POC ABG HCO3 31.2 (22-26 mml/L) 08/24/18 19:29 POC ABG Total CO2 33 (23-27mmol/L) 08/24/18 19:29 POC ABG O2 Sat 93 08/24/18 19:29 PT/INR, D-dimer PT 30.0 Sec. (12.2-14.9) H 08/24/18 18:43 INR 2.64 (0.87-1.13) H 08/24/18 18:43 Abnormal lab findings: Abnormal Labs 08/24/18 08/24/18 08/24/18 18:43 18:43 18:43 WBC 11.2 H Hgb 14.4 H Hct 43.4 H Seg Neutrophils % 71.8 H Seg Neutrophils # 8.0 H PT 30.0 H INR 2.64 H POC ABG pCO2 POC ABG pO2 Sodium 136 L Chloride 92.7 L Carbon Dioxide 33 H Creatinine 0.6 L Glucose 235 H POC Glucose ALT 6 L NT-Pro-B Natriuret Pep Albumin 3.6 L 08/24/18 08/24/18 08/25/18 18:43 19:29 05:56 WBC 12.0 H Hgb 14.6 H Hct 43.2 H Seg Neutrophils % Seg Neutrophils # PT INR POC ABG pCO2 51.6 H POC ABG pO2 68 L Sodium Chloride Carbon Dioxide Creatinine Glucose POC Glucose ALT NT-Pro-B Natriuret Pep 3980 H Albumin 08/25/18 08/25/18 08/25/18 05:56 09:19 11:52 WBC Hgb Hct Seg Neutrophils % Seg Neutrophils # PT INR POC ABG pCO2 POC ABG pO2 Sodium Chloride 92.1 L Carbon Dioxide 33 H Creatinine 0.5 L Glucose 235 H POC Glucose 260 H 299 H ALT NT-Pro-B Natriuret Pep Albumin - Diagnostic Findings Chest x-ray: image reviewed (I would say mild vascular congestion at the bases but rads read as normal) Assessment and Plan 68 y/o female with chronic respiratory failure admitted with COPD exacerbation likely secondary to heart failure exacerbation unknown if systolic or diastolic. 1. Agree with echo, need to screen for pulmonary hypertension as well 2. Agree with diuretic therapy 3. Will stop Solumedrol 125 and start Solumedrol 60q8 starting tomorrow 4. Patient has severe COPD with FEV1 of 43% predicted back in 2015 so is likely much lower now. 5. PPV at night, if patient can bring her own machine in would be accepted, otherwise can order bipap therapy for here.
[2018-08-25] MEDS: PULMICORT IH SCH (21:32)
[2018-08-25] MEDS: PRAVACHOL PO SCH (22:07)
[2018-08-25] MEDS: DESYREL PO SCH (22:07)
[2018-08-25] MEDS: REQUIP PO SCH (22:09)
[2018-08-26] MEDS: DUONEB *Not for PRN Use IH SCH ×4 (01:58→20:59)
[2018-08-26] MEDS: SOLU-Medrol IV SCH ×3 (05:20→22:01)
[2018-08-26 07:36] LABS: Basophils % (Auto) 0.1 % (0.0-1.8); Hematocrit 42.2 % (30.3-42.9); Hemoglobin 14.4 gm/dl (10.1-14.3); Lymphocytes # (Auto) 1.5 K/mm3 (1.2-5.4); Lymphocytes % (Auto) 10.6 % (13.4-35.0); Mean Corpuscular HGB Conc 34 % (30-34); Mean Corpuscular Volume 95 fl (79-97); Monocytes # (Auto) 0.4 K/mm3 (0.0-0.8); Monocytes % (Auto) 2.9 % (0.0-7.3); Platelet Count 280 K/mm3 (140-440); Red Blood Count 4.44 M/mm3 (3.65-5.03); Red Cell Distribution Width 14.4 % (13.2-15.2)
[2018-08-26] MEDS: BROVANA NEBU IH SCH ×2 (07:52→21:00)
[2018-08-26] MEDS: PULMICORT IH SCH ×2 (07:53→20:59)
[2018-08-26 08:01] LABS: BUN/Creatinine Ratio 33; Blood Urea Nitrogen 20 mg/dL (7-17); Calcium 8.7 mg/dL (8.4-10.2); Hemolysis Index 14
[2018-08-26] MEDS: GLUCOTROL PO SCH ×2 (08:46→17:04)
[2018-08-26] MEDS: HumaLOG SUB-Q SCH ×4 (08:46→21:57)
[2018-08-26] MEDS: CALAN PO SCH ×3 (08:47→21:55)
--- NOTE | 2018-08-26 09:59 | XRay Report ---
PORTABLE CHEST INDICATION: Shortness of breath. COMPARISON: 08/24/2018 FINDINGS: Portable, frontal chest radiograph now suggests left mid to lower lung subtle haziness peripherally, not entirely excluded for atelectasis/fluid/technical. Clear remainder lungs. No CHF. Stable cardiomediastinal silhouette, aortic knob calcifications and approximately 4 cm linear device like density projecting over the left heart. EKG leads. Left axillary surgical clips. Stable bones with few degenerative changes. CONCLUSION: Subtle left mid to lower lung haziness now not excluded with various other findings, as described. Please correlate. Thank you for the opportunity to participate in this patient's care.
[2018-08-26] MEDS: ZOLOFT PO SCH (10:18)
[2018-08-26] MEDS: XANAX PO SCH ×2 (10:18→21:54)
[2018-08-26] MEDS: VITAMIN D3 PO SCH (10:18)
[2018-08-26] MEDS: ZYLOPRIM PO SCH (10:18)
[2018-08-26] MEDS: TYLENOL PO PRN (10:18)
[2018-08-26] MEDS: MAG-OX PO SCH (10:18)
[2018-08-26] MEDS: NEURONTIN PO SCH ×2 (10:18→21:55)
[2018-08-26] MEDS: COLCHICINE PO SCH (10:19)
[2018-08-26] MEDS: LASIX IV SCH (10:19)
[2018-08-26] MEDS: WELLBUTRIN SR PO SCH ×2 (10:19→22:00)
[2018-08-26] MEDS: SODIUM CHLORIDE FLUSH SYRINGE 10 ML IV SCH ×2 (10:20→22:23)
[2018-08-26] MEDS ORDERED: LANTUS SUB-Q ONE ×2 (10:43→18:18)
--- NOTE | 2018-08-26 10:49 | Progress Note ---
Assessment and Plan Acute heart failure with preserved EF Echo from [place] 01/2018 was TDS, showed EF 55%. Pt laying flat comfortably without any SOB. Cont IV lasix daily. F/u echo. COPD exacerbation / Acute on chronic respiratory failure Pulmonary following. F/u echo - ? pulm HTN. Lethargy / ? Encephalopathy Improving. Head CT with NAF, bilateral mastoiditis suspected. Paroxysmal atrial fibrillation Currently in SR. Home verapamil resumed. Cont coumadin with tx INR 2-3. Echo from [place] 01/2018 was TDS, showed EF 55%. RBBB Appears chronic. ECG from [place] 08/09/2018 and 07/2015 showed NSR with RBBB. Leukocytosis Mild. Pt afebrile. Pt receiving IV steroids. HTN HLP DM / peripheral neuropathy The patient has been seen in conjunction with Dr. Khan who agrees with the assessment and plan of care. Subjective Date of service: 08/26/18 Principal diagnosis: HF; COPD Interval history: pt resting in bed, laying flat comfortably, appears more alert today. states SOB improving. daughter at bedside. Objective Last Vital Signs Temp 97.6 F 08/26/18 06:31 Pulse 66 08/26/18 08:03 Resp 18 08/26/18 08:03 BP 137/54 08/26/18 06:31 Pulse Ox 92 08/26/18 07:51 - Physical Examination General: No Apparent Distress HEENT: Positive: PERRL, Normocephaly, Mucus Membranes Moist Neck: Positive: neck supple, trachea midline Cardiac: Positive: Reg Rate and Rhythm, S1/S2 Lungs: Positive: Decreased Breath Sounds Neuro: Positive: Grossly Intact Skin: Negative: Rash Extremities: Absent: edema - Labs and Meds CBC 08/26/18 Range/Units 07:16 WBC 14.2 H (4.5-11.0) K/mm3 RBC 4.44 (3.65-5.03) M/mm3 Hgb 14.4 H (10.1-14.3) gm/dl Hct 42.2 (30.3-42.9) % Plt Count 280 (140-440) K/mm3 Lymph # 1.5 (1.2-5.4) K/mm3 [place] # 0.4 (0.0-0.8) K/mm3 Eos # 0.0 (0.0-0.4) K/mm3 Baso # 0.0 (0.0-0.1) K/mm3 Comprehensive Metabolic Panel 08/26/18 Range/Units 07:16 Sodium 137 (137-145) mmol/L Potassium 3.8 (3.6-5.0) mmol/L Chloride 101.0 (98-107) mmol/L Carbon Dioxide 29 (22-30) mmol/L BUN 20 H (7-17) mg/dL Creatinine 0.6 L (0.7-1.2) mg/dL Glucose 406 H (65-100) mg/dL Calcium 8.7 (8.4-10.2) mg/dL - Imaging and Cardiology EKG: report reviewed, image reviewed Echo: report reviewed ( 01/2018 was TDS, showed EF 55%. ) - Telemetry EKG Rhythm: Sinus Rhythm - EKG Sinus rhythms and dysrhythmias: sinus rhythm AV and intraventricular conduction: right bundle branch block
--- NOTE | 2018-08-26 10:52 | Progress Note ---
Assessment and Plan Assessment and plan: Confusion - CT head bilateral mastoiditis - CO2 was 51, unlikely due to CO2 narcosis - It's getting better Chronic diastolic CHF exacerbation - EF was 55%, chest x-ray showed chronic congestion on admission - Repeat CXR today showed subtle left sided haziness - Patient is on IV Lasix daily -Cardiology consulted and recommend Echo COPD - Patient is on appropriate COPD medications - Pulmonary consult appreciated Right bundle-branch block - Chronic DVT prophylaxis Disposition - Continue inpatient care History Interval history: Patient was seen and evaluated this morning, patient is still complaining some shortness of breath. Hospitalist Physical - Physical exam Narrative exam: Not in cardiopulmonary distress. The patient is obese. Vital signs as documented. Head exam is unremarkable. No scleral icterus . Neck is without jugular venous distension, thyromegaly, or carotid bruits. Lungs are clear to auscultation. Cardiac exam reveals regular rate and Rhythm. Abdominal exam reveals normal bowel sounds, no masses, no organomegaly and no aortic enlargement. Extremities are nonedematous and both femoral and pedal pulses are normal. She has some superficial healing ulcer on the right leg which she claimed due to spider bite. CLIENT BUSINESS MANAGER: Alert and oriented 3. No focal weakness. - Constitutional Vitals: Temp Pulse Resp BP Pulse Ox 97.6 F 66 18 137/54 92 08/26/18 06:31 08/26/18 08:03 08/26/18 08:03 08/26/18 06:31 08/26/18 07:51 General appearance: Present: other (lethargic) Results - Labs CBC & Chem 7: 08/26/18 07:16 08/26/18 07:16 Labs: Laboratory Last Values WBC 14.2 K/mm3 (4.5-11.0) H 08/26/18 07:16 RBC 4.44 M/mm3 (3.65-5.03) 08/26/18 07:16 Hgb 14.4 gm/dl (10.1-14.3) H 08/26/18 07:16 Hct 42.2 % (30.3-42.9) 08/26/18 07:16 MCV 95 fl (79-97) 08/26/18 07:16 MCH 33 pg (28-32) H 08/26/18 07:16 MCHC 34 % (30-34) 08/26/18 07:16 RDW 14.4 % (13.2-15.2) 08/26/18 07:16 Plt Count 280 K/mm3 (140-440) 08/26/18 07:16 Lymph % (Auto) 10.6 % (13.4-35.0) L 08/26/18 07:16 [place] % (Auto) 2.9 % (0.0-7.3) 08/26/18 07:16 Eos % (Auto) 0.0 % (0.0-4.3) 08/26/18 07:16 Baso % (Auto) 0.1 % (0.0-1.8) 08/26/18 07:16 Lymph # 1.5 K/mm3 (1.2-5.4) 08/26/18 07:16 [place] # 0.4 K/mm3 (0.0-0.8) 08/26/18 07:16 Eos # 0.0 K/mm3 (0.0-0.4) 08/26/18 07:16 Baso # 0.0 K/mm3 (0.0-0.1) 08/26/18 07:16 Seg Neutrophils % 86.4 % (40.0-70.0) H 08/26/18 07:16 Seg Neutrophils # 12.2 K/mm3 (1.8-7.7) H 08/26/18 07:16 PT 30.0 Sec. (12.2-14.9) H 08/24/18 18:43 INR 2.64 (0.87-1.13) H 08/24/18 18:43 APTT 36.0 Sec. (24.2-36.6) 08/24/18 18:43 POC ABG pH 7.390 (7.35-7.45) 08/24/18 19:29 POC ABG pCO2 51.6 (35-45) H 08/24/18 19:29 POC ABG pO2 68 (80-105) L 08/24/18 19:29 POC ABG HCO3 31.2 (22-26 mml/L) 08/24/18 19:29 POC ABG Total CO2 33 (23-27mmol/L) 08/24/18 19:29 POC ABG O2 Sat 93 08/24/18 19:29 POC ABG Base Excess 6 ((-2) - (+3)mmol/L) 08/24/18 19:29 FiO2 32 % 08/24/18 19:29 Sodium 137 mmol/L (137-145) 08/26/18 07:16 Potassium 3.8 mmol/L (3.6-5.0) 08/26/18 07:16 Chloride 101.0 mmol/L (98-107) 08/26/18 07:16 Carbon Dioxide 29 mmol/L (22-30) 08/26/18 07:16 Anion Gap 11 mmol/L 08/26/18 07:16 BUN 20 mg/dL (7-17) H 08/26/18 07:16 Creatinine 0.6 mg/dL (0.7-1.2) L 08/26/18 07:16 Estimated GFR > 60 ml/min 08/26/18 07:16 BUN/Creatinine Ratio 33 % 08/26/18 07:16 Glucose 406 mg/dL (65-100) H 08/26/18 07:16 POC Glucose 369 (70-105) H 08/26/18 08:34 Calcium 8.7 mg/dL (8.4-10.2) 08/26/18 07:16 Total Bilirubin 0.30 mg/dL (0.1-1.2) 08/24/18 18:43 AST 10 units/L (5-40) 08/24/18 18:43 ALT 6 units/L (7-56) L 08/24/18 18:43 Alkaline Phosphatase 104 units/L (35-129) 08/24/18 18:43 Ammonia 31.0 umol/L (25-60) 08/24/18 21:00 Troponin T < 0.010 ng/mL (0.00-0.029) 08/25/18 00:37 NT-Pro-B Natriuret Pep 3980 pg/mL (0-900) H 08/24/18 18:43 Total Protein 7.2 g/dL (6.3-8.2) 08/24/18 18:43 Albumin 3.6 g/dL (3.9-5) L 08/24/18 18:43 Albumin/Globulin Ratio 1.0 % 08/24/18 18:43 Active Medications - Current Medications Current Medications: Generic Name Dose Route Start Last Admin Trade Name Freq PRN Reason Stop Dose Admin Acetaminophen 650 mg 08/24/18 23:04 08/26/18 10:18 Tylenol PO 650 mg Q4H PRN Administration Pain MILD(1-3)/Fever >100.5/JOYA Albuterol/Ipratropium 1 ampul 08/25/18 02:00 08/26/18 07:53 Duoneb *Not For Prn Use* IH Not Given Q6HRT SANJANA Allopurinol 300 mg 08/25/18 10:00 08/26/18 10:18 Zyloprim PO 300 mg QDAY SANJANA Administration Alprazolam 0.5 mg 08/25/18 10:00 08/26/18 10:18 Xanax PO 0.5 mg BID SANJANA Administration Arformoterol Tartrate 15 mcg 08/25/18 08:00 08/26/18 07:52 Brovana Nebu IH 15 mcg Q12HRT SANJANA Administration Budesonide 0.5 mg 08/25/18 17:19 08/26/18 07:53 Pulmicort IH 0.5 mg Q12HRT SANJANA Administration Bupropion HCl 150 mg 08/25/18 10:00 08/26/18 10:19 Wellbutrin Sr PO 150 mg BID SANJANA Administration Cholecalciferol 1,000 unit 08/25/18 10:00 08/26/18 10:18 Vitamin D3 PO 1,000 unit QDAY SANJANA Administration Colchicine 0.6 mg 08/25/18 10:00 08/26/18 10:19 Colchicine PO 0.6 mg DAILY SANJANA Administration Furosemide 40 mg 08/26/18 10:00 08/26/18 10:19 Lasix IV 40 mg QDAY SANJANA Administration Gabapentin 300 mg 08/25/18 10:00 08/26/18 10:18 Neurontin PO 300 mg BID SANJANA Administration Glipizide 10 mg 08/25/18 08:00 08/26/18 08:46 Glucotrol PO 10 mg BIDDIAB SANJANA Administration Insulin Human Lispro 0 unit 08/25/18 09:30 08/26/18 08:46 Humalog SUB-Q 10 unit ACHS SANJANA Administration Protocol Magnesium Oxide 400 mg 08/25/18 10:00 08/26/18 10:18 Mag-Ox PO 400 mg DAILY SANJANA Administration Methylprednisolone Sodium Succinate 60 mg 08/26/18 06:00 08/26/18 05:20 Solu-Medrol IV 60 mg Q8HR SANJANA Administration Mupirocin 1 applic 08/26/18 11:00 Bactroban 2% TP BID SANJANA Ondansetron HCl 4 mg 08/24/18 23:04 Zofran IV Q8H PRN Nausea And Vomiting Pravastatin Sodium 20 mg 08/25/18 22:00 08/25/18 22:07 Pravachol PO 20 mg QHS SANJANA Administration Ropinirole HCl 1 mg 08/25/18 22:00 08/25/18 22:09 Requip PO 1 mg QHS SANJANA Administration Sertraline HCl 50 mg 08/25/18 10:00 08/26/18 10:18 Zoloft PO 50 mg QDAY SANJANA Administration Sodium Chloride 10 ml 08/25/18 10:00 08/26/18 10:20 Sodium Chloride Flush Syringe 10 Ml IV 10 ml BID SANJANA Administration Sodium Chloride 10 ml 08/24/18 23:04 Sodium Chloride Flush Syringe 10 Ml IV PRN PRN LINE FLUSH Trazodone HCl 150 mg 08/25/18 22:00 08/25/18 22:07 Desyrel PO 150 mg QHS SANJANA Administration Verapamil HCl 120 mg 08/25/18 08:00 08/26/18 08:47 Calan PO 120 mg TID SANJANA Administration Nutrition/Malnutrition Assess - Dietary Evaluation Nutrition/Malnutrition Findings: Nutrition Notes Start: 08/25/18 15:59 Freq: Status: Active Protocol: Document 08/25/18 15:59 RM (Rec: 08/25/18 16:10 RM [id number]) Nutrition Notes Need for Assessment generated from: [facility] Initial or Follow up Assessment Current Diagnosis COPD,Hypertension,Heart Failure Other Pertinent Diagnosis Hx cancer Current Diet Cardiac/consistent CHO Labs/Tests BG 235 Pertinent Medications Solu-Medrol, Lasix Height 5 ft 5 in Weight 104.32 kg Usual Body Weight 106.82 kg [place] Body Weight (kg) 56.81 BMI 38.2 Weight change and time frame 2.3% X 2 weeks Subjective/Other Information Screened for malnutrition. Pt, pt daughter and pt cousin in room at time of visit. Pt asleep at time of visit. Per pt daughter and cousin FUR GLOSSER pt appetite was good. Stated pt ate 1-2 meals daily w/snacks for years. Noted breakfast at bedside w/most eaten. Pt daughter declined regular ONS d/t pt disliking them. Stated UBW was 230-240 lbs 2 weeks ago. No orbital or temporal wasting . Burn Absent Trauma Absent #1 Nutrition Diagnosis Predicted suboptimal energy intake Etiology decreased appetite As Evidenced by Signs and Symptoms pt daughter statement that FUR GLOSSER pt ate 1-2 meals daily w/ snacks Is patient on ventilator? No Is Patient Ambulatory and/or Out of Bed Yes REE-([facility]-ambulatory/OOB) [ NUTR.[id number]] Kcal/Kg value to use for calculation 15 Approximate Energy Requirements Using 1565 kcal/Kg Calculation Used for Recommendations Kcal/kg Additional Notes Protein Needs: 81-97g (1-1.2g/ kg 81 kg adjBW) Fluid Needs: 1 ml/kcal Nutrition Intervention Change Diet Order: Continue current Add Supplement/Snack (indicate name/kcal Ensure Clear 1 daily /protein ) Provides kCal: 240 Provides Protein (gm) 8 Goal #1 Meet at least 75% of calorie and protein needs Anticipated Discharge Needs: Cardiac/Consisent CHO Follow-Up By: 08/30/18 Additional Comments Follow for PO and ONS intakes
--- NOTE | 2018-08-26 11:29 | Progress Note ---
Assessment and Plan 68 y/o female with chronic respiratory failure admitted with COPD exacerbation likely secondary to heart failure exacerbation unknown if systolic or diastolic. 1. Follow up echo results 2. Agree with diuretic therapy 3. Will likely decrease steroids again tomorrow to 40q8 4. Patient has severe COPD with FEV1 of 43% predicted back in 2015 so is likely much lower now. 5. Continue our bipap here as patient not able to get someone to bring hers. Subjective Date of service: 08/26/18 Principal diagnosis: HF; COPD Interval history: Feels somewhat better today. Net negative on yesterday but per daughter did not receive lasix yesterday. [facility] reordered this am. Objective Vital Signs - 12hr 08/25/18 08/26/18 08/26/18 23:40 00:42 01:59 Temperature 98.3 F Pulse Rate 69 69 Pulse Rate [ 73 Anterior Bilateral Throughout] Respiratory 18 22 Rate Respiratory 18 Rate [Anterior Bilateral Throughout] Blood Pressure 111/41 O2 Sat by Pulse 96 93 Oximetry 08/26/18 08/26/18 08/26/18 02:00 02:19 03:10 Temperature Pulse Rate 77 Pulse Rate [ 74 Anterior Bilateral Throughout] Respiratory 20 20 Rate Respiratory 20 Rate [Anterior Bilateral Throughout] Blood Pressure O2 Sat by Pulse 97 97 Oximetry 08/26/18 08/26/18 08/26/18 06:31 07:51 07:53 Temperature 97.6 F Pulse Rate 59 L Pulse Rate [ 66 Anterior Bilateral Throughout] Respiratory 22 Rate Respiratory 18 Rate [Anterior Bilateral Throughout] Blood Pressure 137/54 O2 Sat by Pulse 94 92 Oximetry 08/26/18 08:03 Temperature Pulse Rate Pulse Rate [ 66 Anterior Bilateral Throughout] Respiratory Rate Respiratory 18 Rate [Anterior Bilateral Throughout] Blood Pressure O2 Sat by Pulse Oximetry Constitutional: no acute distress, alert, appears uncomfortable, other (sleepy) Eyes: non-icteric ENT: oropharynx moist Neck: supple, other (large in circumference) Effort: normal Ascultation: Bilateral: diminished breath sounds, rales (bibasilar) Percussion: Bilateral: not dull Tactile fremitus: Bilateral: normal Cardiovascular: regular rate and rhythm Gastrointestinal: normoactive bowel sounds, soft, non-tender Extremities: no edema CBC and BMP: 08/26/18 07:16 08/26/18 07:16 ABG, PT/INR, D-dimer: ABG POC ABG pH 7.390 (7.35-7.45) 08/24/18 19:29 POC ABG pCO2 51.6 (35-45) H 08/24/18 19:29 POC ABG pO2 68 (80-105) L 08/24/18 19:29 POC ABG HCO3 31.2 (22-26 mml/L) 08/24/18 19:29 POC ABG Total CO2 33 (23-27mmol/L) 08/24/18 19:29 POC ABG O2 Sat 93 08/24/18 19:29 PT/INR, D-dimer PT 30.0 Sec. (12.2-14.9) H 08/24/18 18:43 INR 2.64 (0.87-1.13) H 08/24/18 18:43 Abnormal lab findings: Abnormal Labs 08/24/18 08/24/18 08/24/18 18:43 18:43 18:43 WBC 11.2 H Hgb 14.4 H Hct 43.4 H MCH Lymph % (Auto) Seg Neutrophils % 71.8 H Seg Neutrophils # 8.0 H PT 30.0 H INR 2.64 H POC ABG pCO2 POC ABG pO2 Sodium 136 L Chloride 92.7 L Carbon Dioxide 33 H BUN Creatinine 0.6 L Glucose 235 H POC Glucose ALT 6 L NT-Pro-B Natriuret Pep Albumin 3.6 L 08/24/18 08/24/18 08/25/18 18:43 19:29 05:56 WBC 12.0 H Hgb 14.6 H Hct 43.2 H MCH Lymph % (Auto) Seg Neutrophils % Seg Neutrophils # PT INR POC ABG pCO2 51.6 H POC ABG pO2 68 L Sodium Chloride Carbon Dioxide BUN Creatinine Glucose POC Glucose ALT NT-Pro-B Natriuret Pep 3980 H Albumin 08/25/18 08/25/18 08/25/18 05:56 09:19 11:52 WBC Hgb Hct MCH Lymph % (Auto) Seg Neutrophils % Seg Neutrophils # PT INR POC ABG pCO2 POC ABG pO2 Sodium Chloride 92.1 L Carbon Dioxide 33 H BUN Creatinine 0.5 L Glucose 235 H POC Glucose 260 H 299 H ALT NT-Pro-B Natriuret Pep Albumin 08/25/18 08/25/18 08/26/18 17:38 21:47 07:16 WBC 14.2 H Hgb 14.4 H Hct MCH 33 H Lymph % (Auto) 10.6 L Seg Neutrophils % 86.4 H Seg Neutrophils # 12.2 H PT INR POC ABG pCO2 POC ABG pO2 Sodium Chloride Carbon Dioxide BUN Creatinine Glucose POC Glucose 389 H 359 H ALT NT-Pro-B Natriuret Pep Albumin 08/26/18 08/26/18 07:16 08:34 WBC Hgb Hct MCH Lymph % (Auto) Seg Neutrophils % Seg Neutrophils # PT INR POC ABG pCO2 POC ABG pO2 Sodium Chloride Carbon Dioxide BUN 20 H Creatinine 0.6 L Glucose 406 H POC Glucose 369 H ALT NT-Pro-B Natriuret Pep Albumin
[2018-08-26] MEDS: BACTROBAN 2% TP SCH ×2 (17:05→22:20)
[2018-08-26] MEDS: PRAVACHOL PO SCH (21:53)
[2018-08-26] MEDS: DESYREL PO SCH (21:54)
[2018-08-26] MEDS: REQUIP PO SCH (21:58)
[2018-08-26] MEDS ORDERED: LANTUS SUB-Q SCH (22:00)
[2018-08-27] MEDS: DUONEB *Not for PRN Use IH SCH ×4 (01:27→19:44)
[2018-08-27] MEDS: TYLENOL PO PRN ×3 (06:07→20:26)
[2018-08-27] MEDS: SOLU-Medrol IV SCH ×2 (06:07→14:05)
[2018-08-27] MEDS: GLUCOTROL PO SCH ×2 (08:19→18:25)
[2018-08-27] MEDS: HumaLOG SUB-Q SCH ×4 (08:19→21:58)
[2018-08-27] MEDS: NEURONTIN PO SCH ×2 (09:24→21:44)
[2018-08-27] MEDS: XANAX PO SCH ×2 (09:24→21:45)
[2018-08-27] MEDS: COLCHICINE PO SCH (09:24)
[2018-08-27] MEDS: VITAMIN D3 PO SCH (09:24)
[2018-08-27] MEDS: ZYLOPRIM PO SCH (09:24)
[2018-08-27] MEDS: ZOLOFT PO SCH (09:24)
[2018-08-27] MEDS: MAG-OX PO SCH (09:24)
[2018-08-27] MEDS: LASIX IV SCH (09:24)
[2018-08-27] MEDS ORDERED: LANTUS SUB-Q ONE (09:27)
[2018-08-27] MEDS: CALAN PO SCH ×3 (09:37→21:45)
[2018-08-27] MEDS: SODIUM CHLORIDE FLUSH SYRINGE 10 ML IV SCH ×2 (09:43→22:02)
[2018-08-27] MEDS ORDERED: COUMADIN PO SCH (10:00)
[2018-08-27 10:27] LABS: INR 1.82 (0.87-1.13)
[2018-08-27] MEDS: BROVANA NEBU IH SCH ×2 (10:43→19:45)
[2018-08-27] MEDS: PULMICORT IH SCH ×2 (10:43→19:44)
--- NOTE | 2018-08-27 12:05 | Progress Note ---
Assessment and Plan Cardiac status appears stable. Await echocardiogram to determine ejection fraction. - Patient Problems (1) Acute and chronic respiratory failure Current Visit: Yes Status: Acute (2) Lethargy Current Visit: Yes Status: Resolved (3) Acute heart failure with preserved ejection fraction Current Visit: Yes Status: Acute (4) COPD with acute exacerbation Current Visit: Yes Status: Acute (5) Hypertension Current Visit: Yes Status: Chronic Qualifiers: Hypertension type: essential hypertension Qualified Code(s): I10 - Essential (primary) hypertension (6) Paroxysmal atrial fibrillation Current Visit: Yes Status: Chronic (7) Diabetes Current Visit: Yes Status: Chronic Qualifiers: Diabetes mellitus type: type 2 Subjective Date of service: 08/27/18 Principal diagnosis: Acute on chronic resp failure, Acute HFPE, COPD exacerbation Interval history: She feels much better. No shortness of breath. Objective Vital Signs Last Vital Signs Temp 98.0 F 08/27/18 06:03 Pulse 78 08/27/18 09:37 Resp 16 08/27/18 08:00 BP 146/80 08/27/18 09:37 Pulse Ox 93 08/27/18 10:00 - Physical Examination General: No Apparent Distress HEENT: Positive: PERRL, Normocephaly, Mucus Membranes Moist Neck: Positive: neck supple, trachea midline Cardiac: Positive: Reg Rate and Rhythm, S1/S2 Lungs: Positive: clear to auscultation Neuro: Positive: Grossly Intact Abdomen: Positive: Soft, Active Bowel Sounds. Negative: Tender Skin: Positive: Clear. Negative: Rash Musculoskeletal: Normal Range of Motion Extremities: Absent: edema - Labs and Meds Coagulation 08/27/18 Range/Units 09:34 PT 22.3 H (12.2-14.9) Sec. INR 1.82 H (0.87-1.13) - Imaging and Cardiology EKG: image reviewed Echo: report reviewed ( 01/2018 was TDS, showed EF 55%. ) - EKG Sinus rhythms and dysrhythmias: sinus rhythm AV and intraventricular conduction: right bundle branch block
--- NOTE | 2018-08-27 13:49 | Progress Note ---
Assessment and Plan Assessment and plan: Confusion - CT head bilateral mastoiditis - CO2 was 51, unlikely due to CO2 narcosis - It's getting better Chronic diastolic CHF exacerbation - chest x-ray showed chronic congestion on admission, Pending echo - Repeat CXR today showed subtle left sided haziness - Patient is on IV Lasix daily -Cardiology consulted and recommend Echo COPD - Patient is on appropriate COPD medications - Pulmonary consult appreciated Right bundle-branch block - Chronic Paroxysmal atrial fibrillation, history of DVT - Patient is on Coumadin, will check INR. DVT prophylaxis Disposition - Possible DC tomorrow morning. History Interval history: Patient was seen and evaluated this morning, patient is complaining generalized weakness, SOB is getting better. Hospitalist Physical - Physical exam Narrative exam: Not in cardiopulmonary distress. The patient is obese. Vital signs as documented. Head exam is unremarkable. No scleral icterus . Neck is without jugular venous distension, thyromegaly, or carotid bruits. Lungs are clear to auscultation. Cardiac exam reveals regular rate and Rhythm. Abdominal exam reveals normal bowel sounds, no masses, no organomegaly and no aortic enlargement. Extremities are nonedematous and both femoral and pedal pulses are normal. She has some superficial healing ulcer on the right leg which she claimed due to spider bite. MANAGER LOCAL: Alert and oriented 3. No focal weakness. - Constitutional Vitals: Temp Pulse Resp BP Pulse Ox 98.0 F 78 16 146/80 93 08/27/18 06:03 08/27/18 09:37 08/27/18 08:00 08/27/18 09:37 08/27/18 10:00 General appearance: Present: other (lethargic) Results - Labs CBC & Chem 7: 08/26/18 07:16 08/26/18 07:16 Labs: Laboratory Last Values WBC 14.2 K/mm3 (4.5-11.0) H 08/26/18 07:16 RBC 4.44 M/mm3 (3.65-5.03) 08/26/18 07:16 Hgb 14.4 gm/dl (10.1-14.3) H 08/26/18 07:16 Hct 42.2 % (30.3-42.9) 08/26/18 07:16 MCV 95 fl (79-97) 08/26/18 07:16 MCH 33 pg (28-32) H 08/26/18 07:16 MCHC 34 % (30-34) 08/26/18 07:16 RDW 14.4 % (13.2-15.2) 08/26/18 07:16 Plt Count 280 K/mm3 (140-440) 08/26/18 07:16 Lymph % (Auto) 10.6 % (13.4-35.0) L 08/26/18 07:16 [place] % (Auto) 2.9 % (0.0-7.3) 08/26/18 07:16 Eos % (Auto) 0.0 % (0.0-4.3) 08/26/18 07:16 Baso % (Auto) 0.1 % (0.0-1.8) 08/26/18 07:16 Lymph # 1.5 K/mm3 (1.2-5.4) 08/26/18 07:16 [place] # 0.4 K/mm3 (0.0-0.8) 08/26/18 07:16 Eos # 0.0 K/mm3 (0.0-0.4) 08/26/18 07:16 Baso # 0.0 K/mm3 (0.0-0.1) 08/26/18 07:16 Seg Neutrophils % 86.4 % (40.0-70.0) H 08/26/18 07:16 Seg Neutrophils # 12.2 K/mm3 (1.8-7.7) H 08/26/18 07:16 PT 22.3 Sec. (12.2-14.9) H 08/27/18 09:34 INR 1.82 (0.87-1.13) H 08/27/18 09:34 APTT 36.0 Sec. (24.2-36.6) 08/24/18 18:43 POC ABG pH 7.390 (7.35-7.45) 08/24/18 19:29 POC ABG pCO2 51.6 (35-45) H 08/24/18 19:29 POC ABG pO2 68 (80-105) L 08/24/18 19:29 POC ABG HCO3 31.2 (22-26 mml/L) 08/24/18 19:29 POC ABG Total CO2 33 (23-27mmol/L) 08/24/18 19:29 POC ABG O2 Sat 93 08/24/18 19:29 POC ABG Base Excess 6 ((-2) - (+3)mmol/L) 08/24/18 19:29 FiO2 32 % 08/24/18 19:29 Sodium 137 mmol/L (137-145) 08/26/18 07:16 Potassium 3.8 mmol/L (3.6-5.0) 08/26/18 07:16 Chloride 101.0 mmol/L (98-107) 08/26/18 07:16 Carbon Dioxide 29 mmol/L (22-30) 08/26/18 07:16 Anion Gap 11 mmol/L 08/26/18 07:16 BUN 20 mg/dL (7-17) H 08/26/18 07:16 Creatinine 0.6 mg/dL (0.7-1.2) L 08/26/18 07:16 Estimated GFR > 60 ml/min 08/26/18 07:16 BUN/Creatinine Ratio 33 % 08/26/18 07:16 Glucose 406 mg/dL (65-100) H 08/26/18 07:16 POC Glucose 455 (70-105) H 08/27/18 11:23 Calcium 8.7 mg/dL (8.4-10.2) 08/26/18 07:16 Total Bilirubin 0.30 mg/dL (0.1-1.2) 08/24/18 18:43 AST 10 units/L (5-40) 08/24/18 18:43 ALT 6 units/L (7-56) L 08/24/18 18:43 Alkaline Phosphatase 104 units/L (35-129) 08/24/18 18:43 Ammonia 31.0 umol/L (25-60) 08/24/18 21:00 Troponin T < 0.010 ng/mL (0.00-0.029) 08/25/18 00:37 NT-Pro-B Natriuret Pep 3980 pg/mL (0-900) H 08/24/18 18:43 Total Protein 7.2 g/dL (6.3-8.2) 08/24/18 18:43 Albumin 3.6 g/dL (3.9-5) L 08/24/18 18:43 Albumin/Globulin Ratio 1.0 % 08/24/18 18:43 Active Medications - Current Medications Current Medications: Generic Name Dose Route Start Last Admin Trade Name Freq PRN Reason Stop Dose Admin Acetaminophen 650 mg 08/24/18 23:04 08/27/18 06:07 Tylenol PO 650 mg Q4H PRN Administration Pain MILD(1-3)/Fever >100.5/JOYA Albuterol/Ipratropium 1 ampul 08/25/18 02:00 08/27/18 10:43 Duoneb *Not For Prn Use* IH Not Given Q6HRT SANJANA Allopurinol 300 mg 08/25/18 10:00 08/27/18 09:24 Zyloprim PO 300 mg QDAY SANJANA Administration Alprazolam 0.5 mg 08/25/18 10:00 08/27/18 09:24 Xanax PO 0.5 mg BID SANJANA Administration Arformoterol Tartrate 15 mcg 08/25/18 08:00 08/27/18 10:43 Brovana Nebu IH 15 mcg Q12HRT SANJANA Administration Budesonide 0.5 mg 08/25/18 17:19 08/27/18 10:43 Pulmicort IH 0.5 mg Q12HRT SANJANA Administration Bupropion HCl 150 mg 08/25/18 10:00 08/26/18 22:00 Wellbutrin Sr PO 150 mg BID SANJANA Administration Cholecalciferol 1,000 unit 08/25/18 10:00 08/27/18 09:24 Vitamin D3 PO 1,000 unit QDAY SANJANA Administration Colchicine 0.6 mg 08/25/18 10:00 08/27/18 09:24 Colchicine PO 0.6 mg DAILY SANJANA Administration Furosemide 40 mg 08/26/18 10:00 08/27/18 09:24 Lasix IV 40 mg QDAY SANJANA Administration Gabapentin 300 mg 08/25/18 10:00 08/27/18 09:24 Neurontin PO 300 mg BID SANJANA Administration Glipizide 10 mg 08/25/18 08:00 08/27/18 08:19 Glucotrol PO 10 mg BIDDIAB SANJANA Administration Insulin Glargine 20 units 08/27/18 22:00 Lantus SUB-Q QHS SANJANA Insulin Human Lispro 0 unit 08/25/18 09:30 08/27/18 08:19 Humalog SUB-Q 10 unit ACHS SANJANA Administration Protocol Magnesium Oxide 400 mg 08/25/18 10:00 08/27/18 09:24 Mag-Ox PO 400 mg DAILY SANJANA Administration Methylprednisolone Sodium Succinate 60 mg 08/26/18 06:00 08/27/18 06:07 Solu-Medrol IV 60 mg Q8HR SANJANA Administration Mupirocin 1 applic 08/26/18 11:00 08/26/18 22:20 Bactroban 2% TP 1 applic BID SANJANA Administration Ondansetron HCl 4 mg 08/24/18 23:04 Zofran IV Q8H PRN Nausea And Vomiting Pravastatin Sodium 20 mg 08/25/18 22:00 08/26/18 21:53 Pravachol PO 20 mg QHS SANJANA Administration Ropinirole HCl 1 mg 08/25/18 22:00 08/26/18 21:58 Requip PO 1 mg QHS SANJANA Administration Sertraline HCl 50 mg 08/25/18 10:00 08/27/18 09:24 Zoloft PO 50 mg QDAY SANJANA Administration Sodium Chloride 10 ml 08/25/18 10:00 08/27/18 09:43 Sodium Chloride Flush Syringe 10 Ml IV 10 ml BID SANJANA Administration Sodium Chloride 10 ml 08/24/18 23:04 Sodium Chloride Flush Syringe 10 Ml IV PRN PRN LINE FLUSH Trazodone HCl 150 mg 08/25/18 22:00 08/26/18 21:54 Desyrel PO 150 mg QHS SANJANA Administration Verapamil HCl 120 mg 08/25/18 08:00 08/27/18 09:37 Calan PO 120 mg TID SANJANA Administration Warfarin Sodium 8 mg 08/27/18 17:00 Coumadin PO 08/27/18 17:01 [email or web address]@1700 ONE Warfarin Sodium 5 mg 08/29/18 17:00 Coumadin PO [email or web address]@1700 SANJANA Warfarin Sodium 7.5 mg 08/28/18 17:00 Coumadin PO [email or web address]@1700 [facility] Nutrition/Malnutrition Assess - Dietary Evaluation Nutrition/Malnutrition Findings: Nutrition Notes Start: 08/25/18 15:59 Freq: Status: Active Protocol: Document 08/25/18 15:59 RM (Rec: 08/25/18 16:10 RM [id number]) Nutrition Notes Need for Assessment generated from: [facility] Initial or Follow up Assessment Current Diagnosis COPD,Hypertension,Heart Failure Other Pertinent Diagnosis Hx cancer Current Diet Cardiac/consistent CHO Labs/Tests BG 235 Pertinent Medications Solu-Medrol, Lasix Height 5 ft 5 in Weight 104.32 kg Usual Body Weight 106.82 kg [place] Body Weight (kg) 56.81 BMI 38.2 Weight change and time frame 2.3% X 2 weeks Subjective/Other Information Screened for malnutrition. Pt, pt daughter and pt cousin in room at time of visit. Pt asleep at time of visit. Per pt daughter and cousin CUSTOMER ADVISOR pt appetite was good. Stated pt ate 1-2 meals daily w/snacks for years. Noted breakfast at bedside w/most eaten. Pt daughter declined regular ONS d/t pt disliking them. Stated UBW was 230-240 lbs 2 weeks ago. No orbital or temporal wasting . Burn Absent Trauma Absent #1 Nutrition Diagnosis Predicted suboptimal energy intake Etiology decreased appetite As Evidenced by Signs and Symptoms pt daughter statement that CUSTOMER ADVISOR pt ate 1-2 meals daily w/ snacks Is patient on ventilator? No Is Patient Ambulatory and/or Out of Bed Yes REE-([facility]-ambulatory/OOB) [ NUTR.MSJOOB] Kcal/Kg value to use for calculation 15 Approximate Energy Requirements Using 1565 kcal/Kg Calculation Used for Recommendations Kcal/kg Additional Notes Protein Needs: 81-97g (1-1.2g/ kg 81 kg adjBW) Fluid Needs: 1 ml/kcal Nutrition Intervention Change Diet Order: Continue current Add Supplement/Snack (indicate name/kcal Ensure Clear 1 daily /protein ) Provides kCal: 240 Provides Protein (gm) 8 Goal #1 Meet at least 75% of calorie and protein needs Anticipated Discharge Needs: Cardiac/Consisent CHO Follow-Up By: 08/30/18 Additional Comments Follow for PO and ONS intakes
[2018-08-27] MEDS: BACTROBAN 2% TP SCH ×2 (14:11→21:45)
[2018-08-27] MEDS: WELLBUTRIN SR PO SCH ×2 (14:11→21:44)
--- NOTE | 2018-08-27 14:40 | Progress Note ---
Assessment and Plan 68 y/o female with chronic respiratory failure admitted with COPD exacerbation likely secondary to heart failure exacerbation unknown if systolic or diastolic. 1. Follow up echo results 2. Agree with diuretic therapy, should continue through tomorrow. 3. No more IV steroids today. Will start PO taper tomorrow. 4. Patient has severe COPD with FEV1 of 43% predicted back in 2015 so is likely much lower now. 5. Continue our bipap here as patient not able to get someone to bring hers. 6. If echo has nothing acute and patient and family ok, think she will be stable for discharge tomorrow. Discussed this with them at the bedside. Subjective Date of service: 08/27/18 Principal diagnosis: Acute on chronic resp failure, Acute HFPE, COPD exacerbation Interval history: No acute events. BLOOD SUGARS elevated, likely from roids. Objective Vital Signs - 12hr 08/27/18 08/27/18 08/27/18 06:03 08:00 09:37 Temperature 98.0 F Pulse Rate 73 78 Pulse Rate [ 68 Anterior Bilateral Throughout] Respiratory 18 Rate Respiratory 16 Rate [Anterior Bilateral Throughout] Blood Pressure 146/80 Blood Pressure 140/50 [Left] O2 Sat by Pulse 92 Oximetry 08/27/18 08/27/18 08/27/18 10:00 14:15 14:29 Temperature Pulse Rate Pulse Rate [ 72 70 Anterior Bilateral Throughout] Respiratory Rate Respiratory 16 16 Rate [Anterior Bilateral Throughout] Blood Pressure Blood Pressure [Left] O2 Sat by Pulse 93 Oximetry Constitutional: no acute distress, alert, appears uncomfortable, other (sleepy) Eyes: non-icteric ENT: oropharynx moist Neck: supple, other (large in circumference) Effort: normal Ascultation: Bilateral: diminished breath sounds, rales (bibasilar) Percussion: Bilateral: not dull Tactile fremitus: Bilateral: normal Cardiovascular: regular rate and rhythm Gastrointestinal: normoactive bowel sounds, soft, non-tender Extremities: no edema CBC and BMP: 08/26/18 07:16 08/26/18 07:16 ABG, PT/INR, D-dimer: ABG POC ABG pH 7.390 (7.35-7.45) 08/24/18 19:29 POC ABG pCO2 51.6 (35-45) H 08/24/18 19:29 POC ABG pO2 68 (80-105) L 08/24/18 19:29 POC ABG HCO3 31.2 (22-26 mml/L) 08/24/18 19:29 POC ABG Total CO2 33 (23-27mmol/L) 08/24/18 19:29 POC ABG O2 Sat 93 08/24/18 19:29 PT/INR, D-dimer PT 22.3 Sec. (12.2-14.9) H 08/27/18 09:34 INR 1.82 (0.87-1.13) H 08/27/18 09:34 Abnormal lab findings: Abnormal Labs 08/24/18 08/24/18 08/24/18 18:43 18:43 18:43 WBC 11.2 H Hgb 14.4 H Hct 43.4 H MCH Lymph % (Auto) Seg Neutrophils % 71.8 H Seg Neutrophils # 8.0 H PT 30.0 H INR 2.64 H POC ABG pCO2 POC ABG pO2 Sodium 136 L Chloride 92.7 L Carbon Dioxide 33 H BUN Creatinine 0.6 L Glucose 235 H POC Glucose ALT 6 L NT-Pro-B Natriuret Pep Albumin 3.6 L 08/24/18 08/24/18 08/25/18 18:43 19:29 05:56 WBC 12.0 H Hgb 14.6 H Hct 43.2 H MCH Lymph % (Auto) Seg Neutrophils % Seg Neutrophils # PT INR POC ABG pCO2 51.6 H POC ABG pO2 68 L Sodium Chloride Carbon Dioxide BUN Creatinine Glucose POC Glucose ALT NT-Pro-B Natriuret Pep 3980 H Albumin 08/25/18 08/25/18 08/25/18 05:56 09:19 11:52 WBC Hgb Hct MCH Lymph % (Auto) Seg Neutrophils % Seg Neutrophils # PT INR POC ABG pCO2 POC ABG pO2 Sodium Chloride 92.1 L Carbon Dioxide 33 H BUN Creatinine 0.5 L Glucose 235 H POC Glucose 260 H 299 H ALT NT-Pro-B Natriuret Pep Albumin 08/25/18 08/25/18 08/26/18 17:38 21:47 07:16 WBC 14.2 H Hgb 14.4 H Hct MCH 33 H Lymph % (Auto) 10.6 L Seg Neutrophils % 86.4 H Seg Neutrophils # 12.2 H PT INR POC ABG pCO2 POC ABG pO2 Sodium Chloride Carbon Dioxide BUN Creatinine Glucose POC Glucose 389 H 359 H ALT NT-Pro-B Natriuret Pep Albumin 08/26/18 08/26/18 08/26/18 07:16 08:34 12:56 WBC Hgb Hct MCH Lymph % (Auto) Seg Neutrophils % Seg Neutrophils # PT INR POC ABG pCO2 POC ABG pO2 Sodium Chloride Carbon Dioxide BUN 20 H Creatinine 0.6 L Glucose 406 H POC Glucose 369 H 450 H ALT NT-Pro-B Natriuret Pep Albumin 08/26/18 08/26/18 08/27/18 17:39 21:39 07:47 WBC Hgb Hct MCH Lymph % (Auto) Seg Neutrophils % Seg Neutrophils # PT INR POC ABG pCO2 POC ABG pO2 Sodium Chloride Carbon Dioxide BUN Creatinine Glucose POC Glucose 457 H 358 H 431 H ALT NT-Pro-B Natriuret Pep Albumin 08/27/18 08/27/18 09:34 11:23 WBC Hgb Hct MCH Lymph % (Auto) Seg Neutrophils % Seg Neutrophils # PT 22.3 H INR 1.82 H POC ABG pCO2 POC ABG pO2 Sodium Chloride Carbon Dioxide BUN Creatinine Glucose POC Glucose 455 H ALT NT-Pro-B Natriuret Pep Albumin
[2018-08-27] MEDS ORDERED: COUMADIN PO ONE (17:00)
[2018-08-27] MEDS: DESYREL PO SCH (21:44)
[2018-08-27] MEDS: PRAVACHOL PO SCH (21:44)
[2018-08-27] MEDS: REQUIP PO SCH (21:46)
[2018-08-27] MEDS ORDERED: SOLU-Medrol IV SCH (22:00)
[2018-08-27] MEDS ORDERED: LANTUS SUB-Q SCH (22:00)
[2018-08-28] MEDS: DUONEB *Not for PRN Use IH SCH ×3 (02:28→13:13)
[2018-08-28 06:35] LABS: Hematocrit 42.6 % (30.3-42.9); Hemoglobin 14.4 gm/dl (10.1-14.3); Mean Corpuscular HGB Conc 34 % (30-34); Mean Corpuscular Volume 96 fl (79-97); Platelet Count 247 K/mm3 (140-440); Red Blood Count 4.43 M/mm3 (3.65-5.03); Red Cell Distribution Width 14.3 % (13.2-15.2)
[2018-08-28 06:40] LABS: INR 1.67 (0.87-1.13)
[2018-08-28 06:51] LABS: BUN/Creatinine Ratio 34; Blood Urea Nitrogen 27 mg/dL (7-17); Calcium 8.5 mg/dL (8.4-10.2); Hemolysis Index 9
[2018-08-28] MEDS: HumaLOG SUB-Q SCH ×2 (08:37→12:46)
[2018-08-28] MEDS: TYLENOL PO PRN (08:55)
[2018-08-28] MEDS: BROVANA NEBU IH SCH (09:22)
[2018-08-28] MEDS: PULMICORT IH SCH (09:22)
[2018-08-28 09:39] LABS: Basophils % (Manual) 0 % (0.0-1.8); Eosinophils % (Manual) 0 % (0.0-4.3); Total Cells Counted 100
[2018-08-28] MEDS: LASIX IV SCH (09:39)
[2018-08-28] MEDS: GLUCOTROL PO SCH (09:39)
[2018-08-28] MEDS: MAG-OX PO SCH (09:39)
[2018-08-28] MEDS: ZYLOPRIM PO SCH (09:39)
[2018-08-28] MEDS: XANAX PO SCH (09:39)
[2018-08-28] MEDS: VITAMIN D3 PO SCH (09:39)
[2018-08-28] MEDS: NEURONTIN PO SCH (09:39)
[2018-08-28] MEDS: ZOLOFT PO SCH (09:39)
[2018-08-28 09:40] LABS: Platelet Estimate Consistent w Auto; RBC Morphology Normal
[2018-08-28] MEDS: CALAN PO SCH ×2 (09:40→13:25)
[2018-08-28] MEDS: WELLBUTRIN SR PO SCH (09:42)
[2018-08-28] MEDS: COLCHICINE PO SCH (09:42)
[2018-08-28] MEDS: SODIUM CHLORIDE FLUSH SYRINGE 10 ML IV SCH (09:43)
[2018-08-28] MEDS ORDERED: DELTASONE PO ONE (11:28)
--- NOTE | 2018-08-28 11:57 | Discharge Summary ---
Providers - Providers Date of Admission: 08/24/18 23:04 Date of discharge: 08/28/18 Attending physician: BRIDGETT CRISTINA 08/25/18 08:18 Consult to Physician [CONS] Routine Comment: Consulting Provider: BIJU GOSS Physician Instructions: Reason For Exam: COPD, CHF 08/25/18 08:22 Consult to Physician [CONS] Routine Comment: Consulting Provider: DANIELLE CORTEZ Physician Instructions: Reason For Exam: CHF exacerbation, abnormal EKG [facility] Condition: Fair Pertinent studies: CT scan here at unremarkable. Echocardiogram showed ejection fraction 50-55%. Hospital course: Patient is 68-year-old with history of hypertension diabetes hyperlipidemia atrial fibrillation presents with approximately stool failure secondary to COPD. Patient was currently at home with 3 L of O2. Will be discharged on the same. He has oxygen set up at home. Patient was brought in treatment with steroid taper, nebulizers and empiric biotics did well. Patient also had a history of atrial fibrillation but has been regular throughout hospital stay. CT scan showed mastoiditissymptoms at present. Resolved. With antibiotics. Disposition: DC- TO HOME OR SELFCARE - Discharge Diagnoses (1) Acute and chronic respiratory failure Status: Acute Comment: Is resolved secondary to COPD. Will discharge patient on nebulizers. Continued 3 L of oxygen nasal cannula as well as a LABA inhaled steroid to the steroid taper as indicated. (2) Acute heart failure with preserved ejection fraction Status: Acute Comment: Preserved ejection fraction we will continue Lasix 40 mg a.m. and 20 mg by mouth. (3) COPD with acute exacerbation Status: Acute (4) Hyperlipidemia Status: Acute Comment: Atorvastatin goal LDL less than 70. (5) On Coumadin for atrial fibrillation Status: Acute Comment: Patient has been in sinus for quite a while. We will continue Coumadin. Patient takes her on thyroid home is aware is very well versed on how to take her and/or A change her Coumadin appropriately (6) Diabetes Status: Chronic Qualifiers: Diabetes mellitus type: type 2 (7) Hypertension Status: Chronic Qualifiers: Hypertension type: essential hypertension Qualified Code(s): I10 - Essential (primary) hypertension Comment: Present concern on ca channel asher verapamil also helps with rate control. Core Measure Documentation - Palliative Care Palliative Care/ Comfort Measures: Not Applicable - Core Measures Any of the following diagnoses?: none Exam - Constitutional Vitals: Temp Pulse Resp BP Pulse Ox 97.9 F 60 20 135/50 94 08/28/18 05:03 08/28/18 09:40 08/28/18 05:03 08/28/18 09:40 08/28/18 05:03 General appearance: Present: no acute distress, well-nourished - EENT Eyes: Present: PERRL ENT: hearing intact, clear oral mucosa - Neck Neck: Present: supple, normal ROM - Respiratory Respiratory: bilateral: other (breasts breasts no mild wheezing throughout.) - Cardiovascular Rhythm: regular Heart Sounds: Present: S1 & S2 - Extremities Extremities: no ischemia, pulses intact, No edema, normal temperature, normal color Peripheral Pulses: within normal limits - Abdominal General gastrointestinal: Present: soft, non-tender, non-distended, other (obese) - Musculoskeletal Musculoskeletal: gait normal, strength equal bilaterally - Psychiatric Psychiatric: appropriate mood/affect, intact judgment & insight Plan Activity: advance as tolerated Weight Bearing Status: Weight Bear as Tolerated Diet: low fat, diabetic Special Instructions: record daily weights, record daily BP diary, record blood sugar diary [facility] [Primary Care Provider] - 3-5 Days Prescriptions: Verapamil [Calan] 120 mg PO TID #90 tablet Colchicine 0.6 mg PO DAILY #30 capsule predniSONE [Deltasone] 10 mg PO QDAY #30 tab traZODone [Desyrel] 150 mg PO QHS #30 tablet glipiZIDE [Glucotrol] 10 mg PO BIDDIAB #30 tablet Insulin Glargine [Lantus VIAL] 20 units SUB-Q QHS #7 units Furosemide [Lasix TAB] 40 mg PO QDAY #60 tablet Furosemide [Lasix TAB] 40 mg PO 0600,1800 #60 tablet Gabapentin [Neurontin] 300 mg PO BID #60 capsule Potassium 20 meq PO BID #60 Pravastatin [Pravachol] 20 mg PO QHS #30 tablet ALBUTEROL Inhaler (OR & NICU) [ProAir HFA Inhaler] 3 puff IH QID PRN #1 inha PRN Reason: Shortness Of Breath Budesonide [Pulmicort Respules] 0.5 mg IH Q12HRT #1 nebu rOPINIRole [Requip] 1 mg PO QHS #30 tablet Budesonide/Formoterol Fumarate [Symbicort 160-4.5 Mcg Inhaler] 10.2 gm IH BID #1 hfa.aer.ad Cholecalciferol Vit D3 [Vitamin D3 1,000 UNIT TAB] 1,000 unit PO QDAY #1 tablet buPROPion SR [Wellbutrin SR] 150 mg PO BID #30 tablet ALPRAZolam [Xanax TAB] 0.5 mg PO BID #60 tablet Sertraline [Zoloft] 50 mg PO QDAY #30 tablet
[2018-08-28] MEDS: BACTROBAN 2% TP SCH (12:47)
[2018-08-28 12:50] VITALS: BP 139/78
--- NOTE | 2018-08-28 14:56 | Progress Note ---
Assessment and Plan Stable cardiac status. OK to DC on PO diuretics. - Patient Problems (1) Acute and chronic respiratory failure Current Visit: Yes Status: Acute (2) Lethargy Current Visit: Yes Status: Resolved (3) Acute heart failure with preserved ejection fraction Current Visit: Yes Status: Acute (4) COPD with acute exacerbation Current Visit: Yes Status: Acute (5) Hypertension Current Visit: Yes Status: Chronic Qualifiers: Hypertension type: essential hypertension Qualified Code(s): I10 - Essential (primary) hypertension (6) Paroxysmal atrial fibrillation Current Visit: Yes Status: Chronic (7) Diabetes Current Visit: Yes Status: Chronic Qualifiers: Diabetes mellitus type: type 2 Subjective Date of service: 08/28/18 Principal diagnosis: Acute on chronic resp failure, Acute HFPE, COPD exacerbation Interval history: Doing well. No complaints. Objective Vital Signs Last Vital Signs Temp 98.7 F 08/28/18 12:24 Pulse 58 L 08/28/18 12:24 Resp 20 08/28/18 12:24 BP 139/78 08/28/18 12:24 Pulse Ox 96 08/28/18 12:24 - Physical Examination General: No Apparent Distress HEENT: Positive: EOMI, Normocephaly, Mucus Membranes Moist Neck: Positive: neck supple, trachea midline Cardiac: Positive: Reg Rate and Rhythm Lungs: Positive: clear to auscultation Neuro: Positive: Grossly Intact Abdomen: Positive: Soft, Active Bowel Sounds. Negative: Tender /Rectal: Normal Prostate, No Masses Skin: Positive: Clear. Negative: Rash Musculoskeletal: Normal Range of Motion Gait: Normal Gait Extremities: Absent: edema - Labs and Meds Coagulation 08/28/18 Range/Units 05:16 PT 20.8 H (12.2-14.9) Sec. INR 1.67 H (0.87-1.13) CBC 08/28/18 Range/Units 05:16 WBC 15.2 H (4.5-11.0) K/mm3 RBC 4.43 (3.65-5.03) M/mm3 Hgb 14.4 H (10.1-14.3) gm/dl Hct 42.6 (30.3-42.9) % Plt Count 247 (140-440) K/mm3 Comprehensive Metabolic Panel 08/28/18 Range/Units 05:16 Sodium 138 (137-145) mmol/L Potassium 3.6 (3.6-5.0) mmol/L Chloride 93.3 L (98-107) mmol/L Carbon Dioxide 33 H (22-30) mmol/L BUN 27 H (7-17) mg/dL Creatinine 0.8 (0.7-1.2) mg/dL Glucose 285 H (65-100) mg/dL Calcium 8.5 (8.4-10.2) mg/dL - Imaging and Cardiology EKG: image reviewed Echo: report reviewed ( 01/2018 was TDS, showed EF 55%. ) - EKG Sinus rhythms and dysrhythmias: sinus rhythm AV and intraventricular conduction: right bundle branch block
[2018-08-28] MEDS ORDERED: COUMADIN PO SCH (17:00)
[2018-08-28] MEDS ORDERED: LASIX PO SCH (18:00)
[2018-08-29] MEDS ORDERED: COUMADIN PO SCH (17:00)
== END 2018-08-28 14:00 | disposition home health service (06) | DRG 291 ==
LOC: ED 17:56 → 3A 23:04
PROVIDERS: ADMIT Internal Medicine; ATTEND Internal Medicine
PROC: 4A033R1 Measurement of Arterial Saturation, Peripheral, Percutaneous Approach (ICD-10-PCS; principal; 2018-08-24)
PROC: 5A09357 Assistance with Respiratory Ventilation, Less than 24 Consecutive Hours, Continuous Positive Airway Pressure (ICD-10-PCS; 2018-08-25)
PROC: 5A09357 Assistance with Respiratory Ventilation, Less than 24 Consecutive Hours, Continuous Positive Airway Pressure (ICD-10-PCS; 2018-08-26)
DX: I11.0 Hypertensive heart disease with heart failure (principal); J96.22 Acute and chronic respiratory failure with hypercapnia; J44.1 Chronic obstructive pulmonary disease with (acute) exacerbation; I50.33 Acute on chronic diastolic (congestive) heart failure; E11.65 Type 2 diabetes mellitus with hyperglycemia; I48.0 Paroxysmal atrial fibrillation; I45.10 Unspecified right bundle-branch block; R41.0 Disorientation, unspecified; D72.829 Elevated white blood cell count, unspecified; E11.42 Type 2 diabetes mellitus with diabetic polyneuropathy; Z82.49 Family history of ischemic heart disease and other diseases of the circulatory system; Z90.710 Acquired absence of both cervix and uterus; Z90.49 Acquired absence of other specified parts of digestive tract; Z79.51 Long term (current) use of inhaled steroids; Z79.899 Other long term (current) drug therapy; Z79.01 Long term (current) use of anticoagulants; Z79.84 Long term (current) use of oral hypoglycemic drugs; Z99.81 Dependence on supplemental oxygen
CPT/HCPCS: 36415; 51702; 70450; 71045; 80048; 80053; 82140; 82803; 82962; 83880; 84484; 85007; 85025; 85610; 85730; 87116; 93005; 93010; 93306; 94640; 94660; 94760; 96374; G0378; A9270-GY; J1815; J1940; J2930; J7512